=== PATIENT | female | born 1965 | race Caucasian/White ===

== ENCOUNTER → 2017-10-01 10:11 | Outpatient (CLI) | payer BC, SELFPAY ==
[2017-10-01 11:16] LABS: Alanine Aminotransferase 26 U/L (12-78); Albumin Level 3.8 gm/dL (3.4-5.0); Albumin/Globulin Ratio 1.1 (1.1-1.8); Alkaline Phosphatase 77 U/L (46-116); Anion Gap 14.5 mEq/L (5-15); Aspartate Amino Transferase 17 U/L (15-37); Bilirubin,Total 0.2 mg/dL (0.2-1.0); Blood Urea Nitrogen 15 mg/dL (7-18); Calcium 9.2 mg/dL (8.5-10.1); Carbon Dioxide 27 mmol/L (21.0-32.0); Chloride 109 mmol/L (98-107); Chol/HDL Ratio 3.8 (1-3.5); Cholesterol 229 mg/dL (140-200); Creatinine,Serum 0.72 mg/dL (0.55-1.02); Estimated Glomerular Filt Rate 85 ml/min (>60); GFR (African American) 103 ML/MIN (>60); Globulin 3.4 gm/dl (1.3-3.2); Glucose 109 mg/dL (74-106); HDL Cholesterol 61 mg/dL (29-89); LDL Cholesterol 143 mg/dL (0-130); Potassium 4.5 mmoL/L (3.5-5.1); Sodium 146 mmol/L (136-145); Thyroid Stimulating Hormone 1.21 uIU/ml (0.358-3.740); Total Protein,Serum 7.2 gm/dL (6.4-8.2); Triglycerides 124 mg/dL (30-200); Uric Acid 4.3 mg/dL (2.6-7.2); VLDL Cholesterol 25 mg/dL (0-40)
[2017-10-01 11:21] LABS: C-Reactive Protein < 0.2 mg/L (0.0-0.9)
[2017-10-01 12:30] LABS: Erythrocyte Sedimentation Rate 13 mm/hr (0-30)
[2017-10-01 12:33] LABS: Basophils % 0.9 % (0.1-2.0); Eosinophils # 0.3 K/mm3 (0.0-0.4); Eosinophils % 5.3 % (0.1-12.0); Hematocrit 42.1 % (37.0-47.0); Hemoglobin 13.7 g/dL (12.2-16.2); Lymphocytes # 1.5 K/mm3 (0.7-4.5); Lymphocytes % 31.3 K/mm3 (10-50); Mean Corpuscular HGB Conc 32.4 g/dL (31.8-35.4); Mean Corpuscular Hemoglobin 28.9 pg (27.0-31.2); Mean Corpuscular Volume 89.1 fl (81-99); Mean Platelet Volume 7.9 fl (7.4-10.4); Monocytes # 0.3 K/mm3 (0.1-1.0); Monocytes % 6.1 % (1.7-9.3); Neutrophils # 2.7 K/mm3 (1.8-7.8); Neutrophils % 56.4 % (37.0-80.0); Platelet Count 259 K/mm3 (142-424); Red Blood Count 4.73 M/mm3 (4.20-5.40); Red Cell Distribution Width 12.9 % (11.5-17.5); White Blood Count 4.9 K/mm3 (4.8-10.8)
[2017-10-04 08:28] LABS: RA Latex Turbid. 10.9 IU/mL (0.0-13.9)
[2017-10-04 08:31] LABS: Antinuclear Antibodies, IFA Positive (.); Vitamin D 25 Hydroxy 31.3 ng/mL (30.0-100.0)
== END ==
PROVIDERS: Visit Provider Nurse Practitioner Family
DX: R52 Pain, unspecified (principal); R53.83 Other fatigue; E78.2 Mixed hyperlipidemia; F32.9 Major depressive disorder, single episode, unspecified; L65.9 Nonscarring hair loss, unspecified
CPT/HCPCS: 36415; 80053; 80061; 82652; 84436; 84443; 84550; 85025; 85651; 86038; 86140; 86431

== ENCOUNTER → 2017-12-22 15:45 | Outpatient (CLI) | payer BC, SELFPAY ==
--- NOTE | 2017-12-22 15:50 | MM_ITS ---
MM Dig screening mamm BI w/CAD CAD Screening COMPARISON: Digital mammograms with CAD 12/20/2016 and additional views right breast 01/05/2017 and ultrasound right breast 01/07/2017 INDICATION: There is a history of breast cancer in patient's sister diagnosed at age 50. TECHNIQUE: Standard CC and MLO images were obtained. R2 CAD reviewed. FINDINGS: Moderate diffuse fibroglandular densities are seen in both breast. Again noted is a stable area of slightly increased glandular density outer quadrant right breast only definitely seen on the cc view and not definitely noted on MLO view. Ultrasound examination of this area was negative. There is no new or suspicious lesion and there are no suspicious microcalcifications. IMPRESSION: Moderate diffuse breast density with no suspicious lesion seen. BI-RADS Category: 2 Benign Finding(s) RECOMMENDED FOLLOW-UP: 1YR - 1 YEAR FOLLOW-UP (A letter has been sent to the patient regarding results of the study.)
== END ==
PROVIDERS: PCP Nurse Practitioner Family; Visit Provider Nurse Practitioner Family
DX: Z12.31 Encounter for screening mammogram for malignant neoplasm of breast (principal)
CPT/HCPCS: 77067

== ENCOUNTER → 2018-05-17 12:33 | Outpatient (CLI) | payer BC, SELFPAY ==
[2018-05-17 14:25] LABS: Free T4 (Free Thyroxine) 0.78 ng/dl (0.76-1.46); Thyroid Stimulating Hormone 1.44 uIU/ml (0.358-3.740)
[2018-05-18 15:07] LABS: Thyroid Peroxidase Antibodies 14 IU/mL (0-34)
[2018-05-19 09:06] LABS: Thyroid Stimulating Immunoglob <0.10 IU/L (0.00-0.55)
== END ==
PROVIDERS: PCP Nurse Practitioner Family; Visit Provider Otolaryngology
DX: E01.0 Iodine-deficiency related diffuse (endemic) goiter (principal)
CPT/HCPCS: 84439; 84443; 84445; 86376

== ENCOUNTER → 2018-05-19 09:48 | Outpatient (CLI) | payer BC, SELFPAY ==
--- NOTE | 2018-05-19 09:49 | FL_ITS ---
FL barium swallow Ordering Physician: Long Moody MD Patient Age: 53 years: Female HISTORY: ITS.REASON: Dysphagia TECHNIQUE: Dysphagia. Sometimes distinct change of voice. Choking sensation turning neck. 1 minute 26 seconds fluoroscopy time. COMPARISON :Ultrasound thyroid from today . CT abdomen pelvis from 11/25/2015 FINDINGS No prominent findings at hypopharynx or cervical esophagus . Note mild anterior marginal osteophytes at the cervical spine which is very slightly indents the posterior aspect of the cervical spine esophagus and conceivably could contribute to moderate symptoms of dysphasia but are unimpressive. . Disc space narrowing most evident at C4/5 with mild intramarginal findings here and to lesser C5-C6, C6/7. Small venous indentation upon the anterior aspect of the proximal cervical esophagus. Barely appreciable. Epiglottis and hypopharynx appear satisfactory. Epiglottis normal size. Prevertebral soft tissues appear normal. The vallecula and piriform sinuses appear symmetrical frontal projections. The thoracic esophagus appears normal caliber. There is a thin B ring / Z line reflecting top of a small sliding hiatal hernia. . Widely patent esophagus is protrusion with normal mucosal pattern distal esophagus. No restriction at this Schatzki's ring seen distally. IMPRESSION: 1. Cervical esophagus ... No lesions nor prominent findings. Normal swallowing pattern .... Only note minimal indentation upon the posterior aspect lower cervical esophagus due to early minimal anterior marginal osteophytes at C4/5 C5/6 C6/7 ... Of questionable significance but at times can contribute to this dysphagia symptoms . 2. Thoracic esophagus Small sliding hiatal hernia noted no reflux observed during this setting . no significant nor prominent findings during fluoroscopy. Minimal Schatzki's ring
--- NOTE | 2018-05-19 10:20 | US_ITS ---
ULTRASOUND THYROID PROCEDURE: Multiple sagittal & transverse ultrasound images of the thyroid. MW HISTORY: Difficulty swallowing. Throat pain. Normal labs. COMPARISON: No previous relevant studies ----- FINDINGS: Thyroid gland appears normal size with tiny vague nodules at the right lobe. Left lobe appears normal. No areas of increase color Doppler flow Fairly homogeneous gland bilaterally except for the small areas noted RIGHT LOBE: 4 cm length x 2.1 cm x 1.3 cm AP Nodule A: Tiny 3.3 mm nodule lateral mid right lobe. Nodule B: Tiny 2.7 mm nodule medial anterior right lobe near junction with the isthmus LEFT LOBE: 3.9 cm length x 1.6 cm wide x 1.3 cm AP ISTHMUS: Normal thickness up to 3 mm mm AP. =====IMPRESSION.====== Thyroid appears normal in size bilaterally. Only tiny vague nodules seen at right lobe. Left lobe unremarkable.
== END ==
PROVIDERS: PCP Emergency Medicine; Visit Provider Otolaryngology
DX: R13.10 Dysphagia, unspecified (principal); E04.1 Nontoxic single thyroid nodule
CPT/HCPCS: 74220; 76536

== ENCOUNTER → 2018-10-13 17:47 | Outpatient (CLI) | payer BC, SELFPAY | PROVIDERS: Visit Provider Nurse Practitioner Family | DX: J02.9 Acute pharyngitis, unspecified (principal) ==

== ENCOUNTER → 2018-12-30 08:17 | Outpatient (CLI) | payer BC, SELFPAY ==
[2018-12-30 08:53] LABS: Basophils # 0.1 K/mm3 (0-0.2); Eosinophils # 0.3 K/mm3 (0.0-0.4); Eosinophils % 5.5 % (0.1-12.0); Hematocrit 42.6 % (37.0-47.0); Hemoglobin 14.2 g/dL (12.2-16.2); Lymphocytes # 1.7 K/mm3 (0.7-4.5); Lymphocytes % 34.6 % (10-50); Mean Corpuscular HGB Conc 33.3 g/dL (31.8-35.4); Mean Corpuscular Volume 93.1 fl (81-99); Mean Platelet Volume 7.5 fl (7.4-10.4); Monocytes # 0.3 K/mm3 (0.1-1.0); Monocytes % 5.8 % (1.7-9.3); Neutrophils # 2.7 K/mm3 (1.8-7.8); Platelet Count 245 K/mm3 (142-424); Red Blood Count 4.58 M/mm3 (4.20-5.40); Red Cell Distribution Width 13.2 % (11.5-17.5)
[2018-12-30 09:26] LABS: Alanine Aminotransferase 24 U/L (12-78); Albumin/Globulin Ratio 1.1 (1.1-1.8); Alkaline Phosphatase 71 U/L (46-116); Anion Gap 9.2 mEq/L (5-15); Aspartate Amino Transferase 19 U/L (15-37); Bilirubin,Total 0.5 mg/dL (0.2-1.0); Blood Urea Nitrogen 10 mg/dL (7-18); Calcium 9.2 mg/dL (8.5-10.1); Carbon Dioxide 30 mmol/L (21.0-32.0); Chloride 104 mmol/L (98-107); Chol/HDL Ratio 3.1 (1-3.5); Cholesterol 229 mg/dL (140-200); Creatinine,Serum 0.66 mg/dL (0.55-1.02); Estimated Glomerular Filt Rate 93 ml/min (>60); Free T4 (Free Thyroxine) 0.78 ng/dl (0.76-1.46); GFR (African American) 113 ML/MIN (>60); Globulin 3.5 gm/dl (1.3-3.2); Glucose 101 mg/dL (74-106); HDL Cholesterol 74 mg/dL (29-89); LDL Cholesterol 131 mg/dL (0-130); Potassium 4.2 mmoL/L (3.5-5.1); Sodium 139 mmol/L (136-145); Thyroid Stimulating Hormone 1.73 uIU/ml (0.358-3.740); Total Protein,Serum 7.5 gm/dL (6.4-8.2); Triglycerides 118 mg/dL (30-200); VLDL Cholesterol 24 mg/dL (0-40)
== END ==
PROVIDERS: Visit Provider Nurse Practitioner Family
DX: Z00.00 Encounter for general adult medical examination without abnormal findings (principal); R53.83 Other fatigue; E55.9 Vitamin D deficiency, unspecified
CPT/HCPCS: 36415; 80053; 80061; 82652; 84439; 84443; 85025

== ENCOUNTER → 2019-01-12 07:54 | Outpatient (CLI) | payer BC, SELFPAY ==
--- NOTE | 2019-01-12 07:55 | MM_ITS ---
PROCEDURE: MM DIG SCREENING MAMM BI W/CAD CLINICAL INDICATION: screening There is a history of breast cancer in patient's sister diagnosed at age 50 COMPARISON: DMSB DIG MAMM-SCREEN FARA W/CAD from 12/20/2016 DMDXUAVR DIG MAMM-DX UNI A/VW-RT W/CAD from 01/05/2017 [facility] MM Dig screening mamm BI w/CAD from 12/22/2017 TECHNIQUE: Standard CC and MLO images were obtained. R2 CAD reviewed. FINDINGS: Moderate diffuse fibroglandular densities are seen in both breasts again showing slightly increased glandular elements in the upper outer quadrant right breast. There is no new or suspicious lesion in either breast and no suspicious microcalcifications. IMPRESSION: Moderate breast density with no suspicious lesions seen BI-RAD Category: 1 Negative FOLLOW-UP: 1YR 1 Year Follow-up (A letter has been sent to the patient regarding results of the study.) Dictated by: Dr. William Evans MD 01/12/2019 09:[address] William Evans MD in [place] 01/12/2019 09:30
== END ==
PROVIDERS: PCP Emergency Medicine; Visit Provider Nurse Practitioner Family
DX: Z12.31 Encounter for screening mammogram for malignant neoplasm of breast (principal)
CPT/HCPCS: 77067

== ENCOUNTER → 2020-01-21 15:54 | Outpatient (CLI) | payer BC, SELFPAY ==
--- NOTE | 2020-01-21 15:54 | MM_ITS ---
PROCEDURE: MM DIG SCREENING MAMM BI W/CAD Digital Breast Tomosynthesis Included CLINICAL INDICATION: screening There is a history of breast cancer in the patient's sister diagnosed at age 50 COMPARISON: MG DMDXUAVR DIG MAMM-DX UNI A/VW-RT W/CAD from 01/05/2017 MG [facility] MM Dig screening mamm BI w/CAD from 12/22/2017 MG MM DIG SCREENING MAMM BI W/CAD from 01/12/2019 TECHNIQUE: Standard CC and MLO images and 3D Tomosynthesis was obtained. R2 CAD reviewed. FINDINGS: Mild to moderate diffuse fibroglandular densities are seen in both breasts. Findings are fairly symmetrical bilaterally. There is no suspicious lesion in either breast and no suspicious microcalcifications. IMPRESSION: Moderate breast density with no suspicious lesions seen BI-RAD Category: 1 Negative FOLLOW-UP: 1YR 1 Year Follow-up (A letter has been sent to the patient regarding results of the study.) Dictated by: Dr. William Evans MD 01/24/2020 16:20 Dr. William Evans MD in [place] 01/24/2020 16:20
== END ==
PROVIDERS: PCP Nurse Practitioner Family; Visit Provider Nurse Practitioner Family
DX: Z12.31 Encounter for screening mammogram for malignant neoplasm of breast (principal)
CPT/HCPCS: 77063; 77067

== ENCOUNTER 2020-03-18 09:04 | Emergency (ER) | payer BC, SELFPAY ==
[2020-03-18 09:10] VITALS: BP 138/71; PULSE 77; RESP 18; TEMP 36.8; O2SAT 94; BMI 27.4
--- NOTE | 2020-03-18 09:43 | HMH.EDUTC ---
[facility] Disposition Clinical Impression: Exposure to COVID-19 virus Disposition: Home, Self-Care Condition on Discharge: Good Instructions: Glennaifenesin, DI for COVID-19 (Suspected or Confirmed ), Coronavirus Disease 2019, Preventing the Spread of Coronavirus Discharge Instructions Additional Instructions: *Monitor Temp, Over the counter Motrin or Tylenol as directed/as needed Tylenol every 4 hours and Motrin every 6 hours (as long as your family doctor has told you that you can take it) for fever or pain. and straight to ER if unable to lower temp less than 101.0 after medication given *Warm salt water gargles may help to soothe the throat *Throat Lozenges *Warm fluids like tea with honey may help to soothe the throat *Sleep elevated *Humidifier/Vaporizer Follow up IMMEDIATELY for new or worsening symptoms or no Noticeable improvement over the next 48-72 hours. 911 for difficulty breathing or swallowing You were tested for today for COVID19 your test result should be back in the next 24-48 hours, you may call to the [facility] to see if your test results are back in the next 48 hours [phone] [facility] hours are 9am-9pm You was given a handout with instructions for Self Quarantine and Self isolation for while you wait on test results and what to do if they are positive If you are positive the Health Dept will be contacting you also Prescriptions: guaiFENesin [Mucinex 600mg tablet] 600 mg PO Q12HP PRN #20 tab.[email or web address] PRN Reason: Cough Transmission Status: Received by [facility] Referrals: Dylan Haas MD [Primary Care Provider] - As needed Forms: Work/School Release Time of Disposition: 09:58 Medical Decision Making - Bharat Inquiry Pt receiving controlled substance: No Bharat was queried for this patient: No Vital Signs: 03/18/20 09:10 03/18/20 10:04 Temperature 98.2 F 98.2 F Temperature Source Oral Pulse Rate 77 Pulse Rate [Left Brachial] 77 Respiratory Rate 18 18 Blood Pressure 138/71 Blood Pressure [Left Arm] 138/71 Blood Pressure Mean [Left Arm] 93 Blood Pressure Source [Left Arm] Automatic Cuff Blood Pressure Position [Left Arm] Sitting 02 Sat by Pulse Oximetry 94 L Oxygen Delivery Method Room Air Orders (Tests/Meds): ORDERS Category Date Time Status Covid-19 Nasal PCR ([facility]) Routine Lab 03/18/20 09:30 Received [facility] HPI - General Stated complaint: symtoms, exposure Time Seen by Provider: 03/18/20 09:43 Mode of Arrival: Ambulatory Source of Information: Patient Limitations: No Limitations Description of Symptoms (Recalled from Triage Doc. by RN): COVID TEST D/T POSSIBLE EXPOSURE. C/O LOSS OF TASTE, COUGH, AND SOA. 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 - Related Data Home Medications Medication Instructions Recorded Confirmed albuterol sulfate 90 mcg/actuation 2 puff INHALATION Q6H PRN 10/13/18 11/08/19 aerosol inhaler Previous Rx's Medication Instructions Recorded simvastatin 40 mg tablet See Rx Instructions .ROUTE 10/12/19 .COMPLEX #90 tab montelukast 10 mg tablet 10 mg PO QPM #90 tab 01/14/20 sertraline 100 mg tablet See Rx Instructions .ROUTE 02/18/20 .COMPLEX #45 tab guaiFENesin [Mucinex 600mg tablet] 600 mg PO Q12HP PRN #20 tab.er.12h 03/18/20 Allergies Allergy/AdvReac Type Severity Reaction Status Date / Time No Known Allergies Allergy Verified 11/08/19 14:29 - Worker's C
[2020-03-18 10:04] VITALS: BP 138/71; PULSE 77; RESP 18; TEMP 36.8; O2SAT 95
== END 2020-03-18 10:11 | disposition home or self-care (01) ==
PROVIDERS: Emergency Provider Nurse Practitioner; PCP Emergency Medicine
DX: Z20.822 Contact with and (suspected) exposure to COVID-19 (principal); J45.909 Unspecified asthma, uncomplicated; E78.5 Hyperlipidemia, unspecified; F33.1 Major depressive disorder, recurrent, moderate; Z79.899 Other long term (current) drug therapy
CPT/HCPCS: 99202; G0463; U0003

== ENCOUNTER → 2020-03-20 10:15 | Outpatient (CLI) | payer BC, SELFPAY | PROVIDERS: PCP Nurse Practitioner Family; Visit Provider Nurse Practitioner Family | DX: Z20.822 Contact with and (suspected) exposure to COVID-19 (principal) | CPT/HCPCS: U0003 ==

== ENCOUNTER 2020-04-05 03:27 | Emergency (ER) | payer BC, SELFPAY ==
[2020-04-05 03:37] VITALS: PULSE 78; RESP 24; TEMP 37; O2SAT 92; BMI 27.4
--- NOTE | 2020-04-05 03:51 | XR_ITS ---
PROCEDURE: XR CHEST 2V Referring Doctor: Dylan Haas Patient Age:55Y CLINICAL HISTORY: SOA Woke up short of breath with nausea. Patient had 2nd coded vaccine yesterday COMPARISON: CR XR CHEST PORTABLE from 04/05/2020 FINDINGS: . No focal consolidation. No focal pneumonia. No pneumothorax. No pleural effusions . However there does seem to be very slight accentuation of pulmonary vascularity and even question some subtleseptal lines towards left lung base however seems to resolve on this the subsequent portable CXR at 7 a.m.. Would raise possibility and question if it could reflect some mild transient subtle vascular congestion question scant, trace transit pulmonary edema episode-but again this very subtle questionable observations. Equivocal . Heart does remain normal in size. The ahmet and mediastinal structures are satisfactory Chest wall in T-spine unremarkable IMPRESSION: . No focal infiltrate or pneumonia. No pneumothorax nor pleural effusion Suggestion of minimal vascular prominence compared to a subsequent P CXR 4hours later on which it seems to resolve. Would only speculate/question there could been a episode of subtle minor transient vascular congestion contributing to symptoms? Equivocal observation but noted Dictated by: Sumit Guerrero MD 04/05/2020 09:28 Sumit Guerrero MD in [place] 04/05/2020 09:28
[2020-04-05 03:58] VITALS: BP 111/66; PULSE 75; O2SAT 93
--- NOTE | 2020-04-05 04:02 | HMH.EDSYNC ---
ED Disposition Clinical Impression: Vasovagal syncope, Laryngeal spasm Disposition: Home, Self-Care Condition on Discharge: Good Instructions: DI for Syncope in Adults (Fainting) Additional Instructions: recheck if sob or fever - and call pcp for follow up Prescriptions: levoFLOXacin [Levaquin 500mg tab] 500 mg PO DAILY #7 tab Transmission Status: Pending to [facility] Referrals: Judi Alvarez APRN [Primary Care Provider] - - Critical Care Critical Care Time: No Attestation: On 04/05/20, the high probability of a clinically significant, sudden or life threatening deterioration of the following system(s) required my full and direct attention, intervention and personal management. The time I documented below is in addition to time spent performing reported procedures but includes the following listed in this critical care notation. Medical Decision Making - Medical Records Medical records reviewed: Yes: I reviewed the patient's medical records. - Bharat Inquiry Pt receiving controlled substance: No Vital Signs: 04/05/20 03:37 04/05/20 03:58 Temperature 98.6 F Temperature Source Oral Pulse Rate [Right] 78 75 Respiratory Rate 24 Blood Pressure [Right Arm] 111/66 Blood Pressure Mean [Right Arm] 81 Blood Pressure Source [Right Arm] Automatic Cuff Blood Pressure Position [Right Arm] Supine 02 Sat by Pulse Oximetry 92 L 93 L Oxygen Delivery Method Room Air Nasal Cannula Oxygen Flow Rate (LPM) 2 - Lab Data Lab results reviewed: Yes: I reviewed the patient's lab results. Lab Results 04/05/20 03:47: POC Glucose 168 H 04/05/20 03:55: WBC 9.2, RBC 4.52, Hgb 13.4, Hct 41.3, MCV 91.4, MCH 29.6, MCHC 32.4, RDW 13.0, Plt Count 296, MPV 7.6, Neut % (Auto) 69.9, Lymph % (Auto) 20.6, Meagher % (Auto) 4.9, Eos % (Auto) 3.7, Baso % (Auto) 0.9, Neut # (Auto) 6.5, Lymph # (Auto) 1.9, Meagher # (Auto) 0.5, Eos # (Auto) 0.3, Baso # (Auto) 0.1, ESR 32 H 04/05/20 03:55: Sodium 141, Potassium 3.8, Chloride 106, Carbon Dioxide 28, Anion Gap 10.8, BUN 12, Creatinine 0.80, Estimated Creat Clear 96, Estimated GFR 74, Est GFR ( Amer) 90, Glucose 187 H, Calcium 9.8, Total Bilirubin 0.4, AST 33, ALT 33, Alkaline Phosphatase 68, Troponin I < 0.01, C-Reactive Protein 7.5 H, Total Protein 7.9, Albumin 4.5, Globulin 3.4 H, Albumin/Globulin Ratio 1.3, Amylase 66, Lipase 185, Procalcitonin 0.067 Result diagrams: 04/05/20 03:55 04/05/20 03:55 Orders (Tests/Meds): ED MEDICATIONS Generic Name Dose Route Start Last Admin Trade Name Freq PRN Reason Stop Dose Admin Sodium Chloride 1,000 mls @ 999 mls/hr 04/05/20 04:00 04/05/20 03:57 Sod Chlor 0.9% 1000ml Bag IV 04/05/20 05:00 999 mls/hr .Q1H1M IZZY Administration Sodium Chloride 1,000 mls @ 999 mls/hr 04/05/20 04:30 04/05/20 04:19 Sod Chlor 0.9% 1000ml Bag IV 04/05/20 05:30 999 mls/hr .Q1H1M IZZY Administration Sodium Chloride 1,000 mls @ 999 mls/hr 04/05/20 04:30 04/05/20 04:38 Sod Chlor 0.9% 1000ml Bag IV 04/05/20 05:30 Not Given .Q1H1M IZZY Discontinued Medications Generic Name Dose Route Start Last Admin Trade Name Freq PRN Reason Stop Dose Admin Dexamethasone Sodium Phosphate 10 mg 04/05/20 03:54 04/05/20 03:57 Dexamethasone 4mg/Ml 1ml Vial IV 04/05/20 03:55 10 mg ONCE ONE Administration Epinephrine 0.5 ml 04/05/20 03:51 04/05/20 04:12 Epinephrine 2.25% Neb 0.5ml Ud IH 04/05/20 03:52 Not Given ONCE ONE Ketorolac Tromethamine 30 mg 04/05/20 03:54 04/05/20 03:57 Ketorolac 30mg/Ml Vial IV 04/05/20 03:55 30 mg ONCE ONE Administration Prochlorperazine Edisylate 10 mg 04/05/20 03:54 04/05/20 03:56 Prochlorperazine 10mg/2ml Vial IV 04/05/20 03:55 10 mg ONCE ONE Administration ORDERS Category Date Time Status XR chest 2V Stat Exams 04/05/20 03:51 Taken Troponin I Q3H Lab 04/05/20 07:00 Ordered Troponin I Q3H Lab 04/05/20 10:00 Ordered - Radiology Data #
[2020-04-05 04:15] LABS: Chloride 106 mmol/L (98-107); Sodium 141 mmol/L (136-145)
[2020-04-05 04:16] LABS: Potassium 3.8 mmoL/L (3.5-5.1)
[2020-04-05 04:18] LABS: Alanine Aminotransferase 33 U/L (12-78); Amylase 66 U/L (30-110); Anion Gap 10.8 mEq/L (5-15); Aspartate Amino Transferase 33 U/L (14-36); Blood Urea Nitrogen 12 mg/dl (7-17); Carbon Dioxide 28 mmol/L (22.0-30.0); Creatinine Clearance Estimated 96 mL/min (50-200); Estimated Glomerular Filt Rate 74 ml/min (>60); GFR (African American) 90 ML/MIN (>60)
[2020-04-05 04:19] LABS: Albumin Level 4.5 g/dl (3.5-5.0); Albumin/Globulin Ratio 1.3 (1.1-1.8); Alkaline Phosphatase 68 U/L (38-126); Bilirubin,Total 0.4 mg/dl (0.2-1.3); Calcium 9.8 mg/dl (8.4-10.2); Globulin 3.4 g/dL (1.3-3.2); Glucose 187 mg/dl (74-100); Lipase 185 U/L (23-300); Total Protein,Serum 7.9 g/dl (6.3-8.2)
[2020-04-05 04:23] LABS: POC Glucose,Bedside 168 (70-110)
[2020-04-05 04:24] LABS: C-Reactive Protein 7.5 mg/L (0-4)
[2020-04-05 04:33] LABS: Erythrocyte Sedimentation Rate 32 mm/hr (0-30)
[2020-04-05 04:35] LABS: Basophils # 0.1 K/mm3 (0-0.2); Basophils % 0.9 % (0.1-2.0); Eosinophils # 0.3 K/mm3 (0.0-0.4); Eosinophils % 3.7 % (0.1-12.0); Hematocrit 41.3 % (37.0-47.0); Hemoglobin 13.4 g/dL (12.2-16.2); Lymphocytes # 1.9 K/mm3 (0.7-4.5); Lymphocytes % 20.6 % (10-50); Mean Corpuscular HGB Conc 32.4 g/dL (31.8-35.4); Mean Corpuscular Hemoglobin 29.6 pg (27.0-31.2); Mean Corpuscular Volume 91.4 fl (81-99); Mean Platelet Volume 7.6 fl (7.4-10.4); Monocytes # 0.5 K/mm3 (0.1-1.0); Monocytes % 4.9 % (1.7-9.3); Neutrophils # 6.5 K/mm3 (1.8-7.8); Neutrophils % 69.9 % (37.0-80.0); Platelet Count 296 K/mm3 (142-424); Red Blood Count 4.52 M/mm3 (4.20-5.40); White Blood Count 9.2 K/mm3 (4.8-10.8)
[2020-04-05 04:39] LABS: Troponin I < 0.01 ng/ml (0.00-0.034)
[2020-04-05 04:41] LABS: Procalcitonin 0.067 ng/mL (0.0-2.0)
[2020-04-05 05:09] VITALS: BP 130/74; PULSE 75; RESP 16; TEMP 36.9; O2SAT 94
[2020-04-05 07:36] LABS: Troponin I < 0.01 ng/ml (0.00-0.034)
== END 2020-04-05 05:13 | disposition home or self-care (01) ==
PROVIDERS: Emergency Provider Emergency Medicine; PCP Nurse Practitioner Family
DX: R55 Syncope and collapse (principal); J38.5 Laryngeal spasm; E78.5 Hyperlipidemia, unspecified; J45.909 Unspecified asthma, uncomplicated; F33.1 Major depressive disorder, recurrent, moderate; Z79.899 Other long term (current) drug therapy
CPT/HCPCS: 71046; 80053; 82150; 82962; 83690; 84145; 84484; 85025; 85651; 86140; 96365; 96375; 99283

== ENCOUNTER 2020-04-05 06:36 | Observation (INO) | payer BC, SELFPAY ==
[2020-04-05] VITALS (17 sets, daily range): BP systolic 106–155; BP diastolic 58–81; PULSE 77–103; RESP 17–32; TEMP 36.4–37.3; O2SAT 91–99; BMI 27.4; BMI 26.6; BMI 29.2
--- NOTE | 2020-04-05 03:35 | ECG_ITS ---
APPROVED REPORT Exam: Resting ECG HR:78 bpm ECG Measurements Heart Rate 78 AXES MO 144 P 68 QRSd 60 QRS 58 QT 394 T 59 QTc 449 Conclusion Normal sinus rhythm Normal ECG Electronically signed by : Anish Mathews, 04/05/2020 20:36:47
--- NOTE | 2020-04-05 07:01 | XR_ITS ---
PROCEDURE: XR CHEST PORTABLE Referring Doctor: Dylan Haas Patient Age:55Y CLINICAL HISTORY: SOB nonsmoker Patient just received 2nd dose of covid vaccine yesterday COMPARISON: CT ABDPELW CT ABD PELVIS W/ CONTRAST from 11/25/2015 DX,RF BS FL barium swallow from 05/19/2018 CR XR CHEST 2V from 04/05/2020 FINDINGS: AP portable upright chest performed at 7:07 a.m. on April 05 . This is compared to two view chest performed earlier at 4 a.m. on April 05, 2020 Nothing definitely acute. Markings upper normal at the right infrahilar region most likely reflecting summation shadows and possibly some mild atelectasis.. No convincing infiltrate. The the AP chest projection accentuates heart size with heart upper normal in size on this study. Pulmonary vascularity appears normal.. In fact there seems to be slightly less prominence of pulmonary vascularity than seen on the 4 a.m. PA and lateralCXR study . Caitie and mediastinal structures otherwise unremarkable no pleural effusions but no pneumothorax. Chest wall unremarkable IMPRESSION: Nothing definitely acute.. Accentuation markings right infrahilar region noted-most likely reflecting overlapping structures along with possible minimal atelectasis. (Doubt infiltrate particularly given normal appearance on CXR four hours earlier) Dictated by: Sumit Guerrero MD 04/05/2020 09:20 Sumit Guerrero MD in [place] 04/05/2020 09:20
--- NOTE | 2020-04-05 07:12 | HMH.EDSOB ---
ED Disposition Clinical Impression: SIRS (systemic inflammatory response syndrome) Aspiration pneumonia Qualifiers: Aspiration pneumonia type: unspecified Laterality: right Lung location: lower lobe of lung Qualified Code(s): J69.0 - Pneumonitis due to inhalation of food and vomit Disposition: Admitted as Observation Condition on Discharge: Good Instructions: DI for Shortness of Breath Referrals: Judi Alvarez APRN [Primary Care Provider] - - Critical Care Critical Care Time: No Attestation: On 04/05/20, the high probability of a clinically significant, sudden or life threatening deterioration of the following system(s) required my full and direct attention, intervention and personal management. The time I documented below is in addition to time spent performing reported procedures but includes the following listed in this critical care notation. Medical Decision Making - Medical Records Medical records reviewed: Yes: I reviewed the patient's medical records. - Bharat Inquiry Pt receiving controlled substance: No Vital Signs: 04/05/20 06:53 Pulse Rate [Right] 95 H Respiratory Rate 32 H Blood Pressure [Right Arm] 150/76 H Blood Pressure Mean [Right Arm] 100 Blood Pressure Source [Right Arm] Automatic Cuff Blood Pressure Position [Right Arm] Sitting 02 Sat by Pulse Oximetry 94 L Oxygen Delivery Method Room Air - Lab Data Lab results reviewed: Yes: I reviewed the patient's lab results. Lab Results 04/05/20 07:13: Specimen Source Right radial, O2 % Room air, ABG pH 7.40, ABG pCO2 36.8, ABG pO2 57.4 L, ABG HCO3 22.2, ABG Total CO2 23.3, ABG O2 Saturation 91, ABG Base Excess -2.7 L, Luca Test Acceptable, ABG Lactate 1.8 Orders (Tests/Meds): ED MEDICATIONS Generic Name Dose Route Start Last Admin Trade Name Freq PRN Reason Stop Dose Admin Sodium Chloride 1,000 mls @ 999 mls/hr 04/05/20 07:00 04/05/20 06:57 Sod Chlor 0.9% 1000ml Bag IV 04/05/20 08:00 999 mls/hr .Q1H1M IZZY Administration Sodium Chloride 8 ml 04/05/20 06:56 Sodium Chloride 0.9% 10ml Vial IV 05/05/20 06:55 NEEDED PRN dilute pepcid Discontinued Medications Generic Name Dose Route Start Last Admin Trade Name Freq PRN Reason Stop Dose Admin Diphenhydramine HCl 50 mg 04/05/20 06:56 04/05/20 06:57 Diphenhydramine 50mg/Ml Vial IV 04/05/20 06:57 50 mg ONCE ONE Administration Famotidine 20 mg 04/05/20 06:56 04/05/20 06:57 Famotidine 20mg/2ml Vial IV 04/05/20 06:57 20 mg ONCE ONE Administration Methylprednisolone Sodium Succinate 125 mg 04/05/20 07:34 Methylprednisolone Sod Succ 125mg Vial IV 04/05/20 07:35 ONCE ONE ORDERS Category Date Time Status Chest XR -- portable [XR chest portable] Stat Exams 04/05/20 07:01 Taken Complete Blood Count Auto Diff Stat Lab 04/05/20 06:45 Received Covid-19 Nasal PCR ([facility]) Routine Lab 04/05/20 03:50 Received Lactic Acid Stat Lab 04/05/20 07:13 Ordered Blood Culture Stat Micro 04/05/20 07:33 Ordered - Radiology Data #1 Image(s): Chest Image Reviewed: Yes I reviewed the patient's radiology image Preliminary Findings: Abnormal Medical Decision Narrative: prob pneumatitis and aspiration pneumonia Resp/SOB HPI - General Chief Complaint: Shortness of Breath/Dyspnea Stated Complaint: SOA Time Seen by Provider: 04/05/20 07:00 Mode of Arrival: Ambulatory Source of Information: Patient, Spouse, Medical Record Limitations: No Limitations Description of Symptoms (Recalled from ER Triage Doc. by RN): Pt was here earlier for SOA and N/V pt returned having a severe asthma event, pt audibly wheezing and retracting with each breath. Pt made it hame took a shower and had to return in respiratory distress - History of Present Illness seen earlier with possible aspiration and was doing better - but dev sudden sob and returned to ed - hx of asthma - no fever but has chills - MD Complaint: shortness of breath, coug
[2020-04-05 07:32] LABS: ABG Base Excess -2.7 mmol/L (-2.4-2.3); ABG HCO3 22.2 mmhg (22.0-26.0); ABG Oxygen Saturation 91 % (90-100); ABG PCO2 36.8 mmhg (35.0-45.0); ABG PO2 57.4 mmhg (80-100); ABG TCO2 23.3 mmhg (23-27)
[2020-04-05 07:33] LABS: Oxygen ROOM AIR %
[2020-04-05 07:34] LABS: Allen's Test Acceptable; Lactate Arterial 1.8 mmol/L (0.4-2.0); Source Right Radial
[2020-04-05 07:39] LABS: Basophils # 0.1 K/mm3 (0-0.2); Basophils % 0.5 % (0.1-2.0); Eosinophils # 0.1 K/mm3 (0.0-0.4); Eosinophils % 0.5 % (0.1-12.0); Hematocrit 43.3 % (37.0-47.0); Lymphocytes # 1.6 K/mm3 (0.7-4.5); Lymphocytes % 11.6 % (10-50); Mean Corpuscular HGB Conc 32.3 g/dL (31.8-35.4); Mean Corpuscular Hemoglobin 29.7 pg (27.0-31.2); Mean Corpuscular Volume 91.7 fl (81-99); Mean Platelet Volume 8.6 fl (7.4-10.4); Monocytes # 0.3 K/mm3 (0.1-1.0); Monocytes % 2.3 % (1.7-9.3); Neutrophils # 11.4 K/mm3 (1.8-7.8); Neutrophils % 85.1 % (37.0-80.0); Platelet Count 269 K/mm3 (142-424); Red Blood Count 4.72 M/mm3 (4.20-5.40); Red Cell Distribution Width 13.8 % (11.5-17.5); White Blood Count 13.4 K/mm3 (4.8-10.8)
[2020-04-05 07:42] LABS: MANUAL DIFFERENTIAL MANUAL DIFFERENTIAL (MANUAL DIFF)
--- NOTE | 2020-04-05 08:23 | PC.NURSE ---
contacted pharmacy r/t antibiotic dosing per ER MD request, spoke with Tracee.
[2020-04-05 08:27] LABS: Lymphocytes % 11 % (10-50); Monocytes % 2 % (2-9); Neutrophils % 87 % (42-76); Platelet Estimate Normal; RBC Morphology Normal; Total Cells Counted 100
--- NOTE | 2020-04-05 08:33 | PC.NURSE ---
Called house for bed assignment
--- NOTE | 2020-04-05 09:06 | HMH.HP ---
*Admission Date: 04/05/20 *Chief complaint: sob *History of present illness: this pt with recent covid-19 vaccines and had ed visit as she awoke with n/v and vasovagal episode and sob - she was treated and improved and d/c home but in a few hrs had sob with chills - pt with abn cxr and was admitted for treatment with steroids - resp treatment and abx [facility] History I have reviewed the patient's past medical history: Yes Medical History: Reports:: Asthma, Depression, Hyperlipidemia Denies:: Diabetes Mellitus Type 1, Diabetes Mellitus Type 2 *Have you ever received a pneumonia vaccine?: No *Have you received a flu vaccine this season?: Yes Other Surgeries: Yes: Colonoscopy Amputation: No Fractures: No - *Social History Smoking Status: Never smoker Alcohol Intake: never Alcohol Intake Frequency:: 0-2 drinks per day Substance Use Type: denies use *Occupational Status:: employed Housing: house Household Members: family *Travel in the last 8 weeks: None - Psychiatric History Pschychiatric History:: Reports:: Depression Family Hx:: Diabetes Review of Systems - Review of Systems Review of systems:: pertinent systems reviewed and negative unless documented below - Constitutional Reports chills, Denies fever(s) - Eyes Denies change in vision - ENT Denies sore throat, Denies throat swelling - *Cardiovascular Denies chest pain - *Respiratory Reports cough, Reports shortness of breath, Reports wheezing, Denies coughing up blood - *Gastrointestinal Denies abdominal pain - *Genitourinary Denies blood in urine - *Musculoskeletal Denies joint pain, Denies body aches - Integumentary/Breasts Denies rash - *Neurologic Denies headache(s), Denies seizure-like activity - Psychiatric Denies confusion, Denies depression, Denies memory loss Meds Home Medications Medication Instructions Recorded Confirmed Type albuterol sulfate 90 mcg/actuation 2 puff INHALATION Q6H PRN 10/13/18 04/05/20 History aerosol inhaler Sertraline HCl [Zoloft] 150 mg PO DAILY 04/05/20 04/05/20 History Simvastatin 40 mg PO DAILY 04/05/20 04/05/20 History levoFLOXacin [Levaquin 500mg 500 mg PO DAILY 04/05/20 04/05/20 History tab] Allergies Allergy/AdvReac Type Severity Reaction Status Date / Time No Known Allergies Allergy Verified 11/08/19 14:29 Exam Vital signs and Labs for Last 24 Hours: Temp Pulse Resp BP Pulse Ox 99.1 F 90 20 150/79 H 91 L 04/05/20 07:48 04/05/20 09:00 04/05/20 07:48 04/05/20 09:00 04/05/20 09:00 Laboratory Results - last 24 hr 04/05/20 06:45: WBC 13.4 H D, RBC 4.72, Hgb 14.0, Hct 43.3, MCV 91.7, MCH 29.7, MCHC 32.3, RDW 13.8, Plt Count 269, MPV 8.6, Neut % (Auto) 85.1 H, Lymph % (Auto) 11.6, [place] % (Auto) 2.3, Eos % (Auto) 0.5, Baso % (Auto) 0.5, Neut # (Auto) 11.4 H, Lymph # (Auto) 1.6, [place] # (Auto) 0.3, Eos # (Auto) 0.1, Baso # (Auto) 0.1, Total Counted 100, Neutrophils % (Manual) 87 H, Lymphocytes % (Manual) 11, Monocytes % (Manual) 2, Platelet Estimate Normal, RBC Morphology Normal 04/05/20 07:13: Specimen Source Right radial, O2 % Room air, ABG pH 7.40, ABG pCO2 36.8, ABG pO2 57.4 L, ABG HCO3 22.2, ABG Total CO2 23.3, ABG O2 Saturation 91, ABG Base Excess -2.7 L, Luca Test Acceptable, ABG Lactate 1.8 04/05/20 07:26: Lactate 2.0 I & O for Last 24 hours: Intake & Output 04/02/20 04/03/20 04/04/20 04/05/20 11:59 11:59 11:59 11:59 Weight 170 lb - Constitutional no acute distress - *Routine HEENT Exam Head: Present: normocephalic Eye: Present: EOMI, PERRL ENT: Present: mucous membranes dry - *Routine Neck Exam Absent: supple, JVD - *Routine Respiratory Exam Present: decreased breath sounds, wheezes - *Routine Cardiovascular Exam Present: tachycardia. Absent: murmur, gallop, rubs - *Routine Abdominal Exam Present: soft - *Routine Extremities Exam Absent: calf tenderness - *Routine Skin Exam Present: intact - *Routine Neurological Exam
--- NOTE | 2020-04-05 11:10 | PC.NURSE ---
pt arrived to the floor at this time.
--- NOTE | 2020-04-05 14:34 | P.CONPHA_ITS ---
[facility] Pharmacy VTE Monitoring - Patient Demographics Admission date: 04/05/20 Report Date: 04/05/20 Time: 14:34 Allergies/Adverse Reactions: Patient Allergies No Known Allergies Allergy (Verified 11/08/19 14:29) Height: 1.63 m Weight: 77.366 kg Patient Problems: Current Active Problems Laryngeal spasm (Acute) Aspiration pneumonia (Acute) SIRS (systemic inflammatory response syndrome) (Acute) Overweight (BMI 25.0-29.9) (Acute) Hyperlipemia, mixed (Chronic) Depression (Chronic) - VTE Risk Labs: VTE Related Lab Results Hgb 14.0 g/dL (12.2-16.2) 04/05/20 06:45 Hct 43.3 % (37.0-47.0) 04/05/20 06:45 Plt Count 269 K/mm3 (142-424) 04/05/20 06:45 VTE Score: 3 VTE Risk Level: Low Risk - Prophylaxis VTE Prophylaxis Ordered?: Yes Types of VTE Prophylaxis: TEDS Knee High Location of Applied Device: Bilateral Lower Extremeties
--- NOTE | 2020-04-05 15:17 | PC.NURSE ---
cup given to pt after treatment for sputum simple. dry cough at this time.
--- NOTE | 2020-04-05 16:18 | PC.NURSE ---
PT IS RESTING IN BED. NO COMPLAINTS OF DISCOMFORT OR SOA. ALERT AND ORIENTED X3. PT STATES SHE FEELS MUCH BETTER NOW THAN SHE DID WHEN SHE ARRIVED TO THE HOSPITAL FOR SURE. PT DID NOT EAT ANY LUNCH BUT HAS BEEN DRINKING BOTTLED WATER. O2 SATURATION 93-96% ON 2 L NC. LUNG SOUNDS DIMINISHED. ABDOMEN SOFT/NON TENDER WITH ACTIVE BOWEL SOUND. PT STATES HER LAST BOWEL MOVEMENT WAS YESTERDAY. VSS. WILL CONTINUE TO MONITOR.
--- NOTE | 2020-04-05 21:00 | XR_ITS ---
PROCEDURE: XR SOFT TISSUE NECK CLINICAL INDICATION: choking COMPARISON: No exams were available for comparison FINDINGS: There is straightening of the normal curvature of the cervical spine suggesting possible muscle spasm. Mild multilevel degenerate changes are seen mid cervical spine. The prevertebral soft tissues are normal. The epiglottis appears normal. The oral pharyngeal airway and upper trachea appear normal. IMPRESSION: Possible mild muscle spasm, no other significant abnormality noted Dictated by: Dr. William Evans MD 04/06/2020 08:06 Dr. William Evans MD in [place] 04/06/2020 08:06
--- NOTE | 2020-04-05 21:00 | XR_ITS ---
PROCEDURE: XR CHEST 2V CLINICAL HISTORY: choking/sob COMPARISON: CR XR CHEST PORTABLE from 04/05/2020 CR XR CHEST 2V from 04/05/2020 FINDINGS: The cardiomediastinal silhouette and pulmonary vascularity are within normal limits. The lung cameron are well expanded. There is a horizontal opacity at the left base just above the left hemidiaphragm suggesting atelectasis although a minimal pneumonic infiltrate cannot be excluded. A small amount of pleural fluid at the left costophrenic angle is a possibility. The left upper lung field and right lung cameron are clear. IMPRESSION: Left basilar atelectasis with possible associated developing pneumonic infiltrate and/or small amount of pleural fluid Dictated by: Dr. William Evans MD 04/06/2020 08:04 Dr. William Evans MD in [place] 04/06/2020 08:04
[2020-04-06] VITALS: BP 123/67; PULSE 93; RESP 17; TEMP 37.2; O2SAT 96
[2020-04-06 04:00] VITALS: BP 119/56; PULSE 86; RESP 17; TEMP 37; O2SAT 94
--- NOTE | 2020-04-06 05:44 | PC.NURSE ---
Pt is A&ox4. Pt has slept t/o most of this shift. Lung sounds diminished bilat t/o. Dry, nonproductive cough noted. Active bowel sounds in all 4 quads, no BM noted. Pt has gotten up and taken self to the bathroom this shift w/ no issues. No other acute changes or complaints at this time.
[2020-04-06 06:14] VITALS: PULSE 87; PULSE 89; O2SAT 95
[2020-04-06 06:19] VITALS: RESP 16
[2020-04-06 07:08] LABS: Lymphocytes # 1.1 K/mm3 (0.7-4.5); Lymphocytes % 10.2 % (10-50); Mean Corpuscular HGB Conc 32.7 g/dL (31.8-35.4); Mean Corpuscular Hemoglobin 29.6 pg (27.0-31.2); Mean Corpuscular Volume 90.5 fl (81-99); Mean Platelet Volume 7.7 fl (7.4-10.4); Monocytes # 0.4 K/mm3 (0.1-1.0); Neutrophils # 8.9 K/mm3 (1.8-7.8); Neutrophils % 85.8 % (37.0-80.0); Platelet Count 205 K/mm3 (142-424); Red Blood Count 3.86 M/mm3 (4.20-5.40); Red Cell Distribution Width 13.3 % (11.5-17.5); White Blood Count 10.4 K/mm3 (4.8-10.8)
[2020-04-06 07:11] LABS: Chloride 110 mmol/L (98-107); Sodium 140 mmol/L (136-145)
[2020-04-06 07:12] LABS: Potassium 4.3 mmoL/L (3.5-5.1)
[2020-04-06 07:14] LABS: Blood Urea Nitrogen 12 mg/dl (7-17); Creatinine Clearance Estimated 132 mL/min (50-200); Estimated Glomerular Filt Rate 103 ml/min (>60); GFR (African American) 125 ML/MIN (>60)
[2020-04-06 07:15] LABS: Anion Gap 10.3 mEq/L (5-15); Calcium 9.5 mg/dl (8.4-10.2); Carbon Dioxide 24 mmol/L (22.0-30.0); Glucose 146 mg/dl (74-100); Magnesium 1.9 mg/dl (1.6-2.3)
[2020-04-06 07:17] LABS: MANUAL DIFFERENTIAL MANUAL DIFFERENTIAL (MANUAL DIFF)
[2020-04-06 07:30] LABS: Lymphocytes % 9 % (10-50); Neutrophils % 86 % (42-76); Platelet Estimate Normal; RBC Morphology Normal; Total Cells Counted 100
[2020-04-06 08:00] VITALS: BP 126/70; PULSE 91; RESP 18; TEMP 36.8; O2SAT 92
[2020-04-06 08:20] LABS: Hemoglobin 11.6 g/dL (12.2-16.2)
--- NOTE | 2020-04-06 09:09 | HMH.DCSUM ---
General - General Admission date:: 04/05/20 Discharge date: 04/06/20 HPI HPI: this pt with recent covid-19 vaccines and had ed visit as she awoke with n/v and vasovagal episode and sob - she was treated and improved and d/c home but in a few hrs had sob with chills - pt with abn cxr and was admitted for treatment with steroids - resp treatment and abx Hospital Course Hospital Course: pt has did well on abx and steroids with improved sx- her vital signs stable and labs ok and tolerating diet - will d/c on meds and ent as follow up Objective Vital signs: Temp Pulse Resp BP Pulse Ox 98.2 F 91 H 18 126/70 92 L 04/06/20 08:00 04/06/20 08:00 04/06/20 08:00 04/06/20 08:00 04/06/20 08:00 no acute distress - *Routine HEENT Exam Head: Present: normocephalic Eye: Present: EOMI, PERRL ENT: Present: mucous membranes moist - *Routine Neck Exam Present: supple. Absent: JVD - *Routine Respiratory Exam Present: CTA bilaterally - *Routine Cardiovascular Exam Present: RRR. Absent: murmur, rubs - *Routine Abdominal Exam Present: soft - *Routine Extremities Exam Absent: calf tenderness - *Routine Skin Exam Present: intact - *Routine Neurological Exam Present: alert, CN II-XII intact - Routine Psychiatric Exam Present: normal affect Results Labs on day of discharge: Labs from last 24 hours 04/06/20 04/06/20 06:16 06:16 WBC 10.4 RBC 3.86 L Hgb 11.6 L D Hct 35.0 L MCV 90.5 MCH 29.6 MCHC 32.7 RDW 13.3 Plt Count 205 MPV 7.7 Neut % (Auto) 85.8 H Lymph % (Auto) 10.2 [place] % (Auto) 4.0 Eos % (Auto) 0.0 L Baso % (Auto) 0.0 L Neut # (Auto) 8.9 H Lymph # (Auto) 1.1 [place] # (Auto) 0.4 Eos # (Auto) 0.0 Baso # (Auto) 0.0 Total Counted 100 Neutrophils % (Manual) 86 H Band Neutrophils % 5.0 Lymphocytes % (Manual) 9 L Platelet Estimate Normal RBC Morphology Normal Sodium 140 Potassium 4.3 Chloride 110 H Carbon Dioxide 24 Anion Gap 10.3 BUN 12 Creatinine 0.60 D Estimated Creat Clear 132 Estimated GFR 103 Est GFR ( Amer) 125 D Glucose 146 H Calcium 9.5 Magnesium 1.9 DS: Diagnosis - Discharge Diagnosis (1) Overweight (BMI 25.0-29.9) Status: Acute (2) Laryngeal spasm Status: Acute (3) Aspiration pneumonia Status: Acute (4) SIRS (systemic inflammatory response syndrome) Status: Acute (5) Hyperlipemia, mixed Status: Chronic (6) Depression Status: Chronic Discharge Plan - Patient Discharge Instructions ACTIVITY: Continue current activity DIET: continue same diet - Follow up Plan Disposition: Home, Self-Retirement Medications: Home Medications Medication Instructions Recorded Confirmed Type albuterol sulfate 90 mcg/actuation 2 puff INHALATION Q6H PRN 10/13/18 04/05/20 History aerosol inhaler Montelukast Sodium [Singulair] 10 mg PO PM 04/05/20 04/05/20 History Sertraline HCl [Zoloft] 150 mg PO DAILY 04/05/20 04/05/20 History Simvastatin 40 mg PO HS 04/05/20 04/05/20 History levoFLOXacin [Levaquin 500mg 500 mg PO DAILY 04/05/20 04/05/20 History tab] predniSONE [Prednisone 20mg 20 mg PO BID #10 tab 04/06/20 Rx Tab] Prescriptions/Medication Reconciliation: New predniSONE [Prednisone 20mg Tab] 20 mg PO BID #10 tab Continued albuterol sulfate 90 mcg/actuation aerosol inhaler 2 puff INHALATION Q6H PRN PRN Reason: Shortness Of Breath Or Wheezing levoFLOXacin [Levaquin 500mg tab] 500 mg PO DAILY Sertraline HCl [Zoloft] 150 mg PO DAILY Simvastatin 40 mg PO HS Montelukast Sodium [Singulair] 10 mg PO PM - Problem Reconciliation Problems Reviewed?: Yes
== END 2020-04-06 09:58 | disposition home or self-care (01) ==
LOC: ER 08:29 → 2ND 08:37
PROVIDERS: Admitting Provider Emergency Medicine; Emergency Provider Emergency Medicine; PCP Nurse Practitioner Family; Visit Provider Emergency Medicine
DX: J69.0 Pneumonitis due to inhalation of food and vomit (principal); R65.10 Systemic inflammatory response syndrome (SIRS) of non-infectious origin without acute organ dysfunction; J38.5 Laryngeal spasm; Z79.899 Other long term (current) drug therapy; Z79.51 Long term (current) use of inhaled steroids
CPT/HCPCS: 36415; 70360; 71045; 71046; 80048; 82803; 83605; 83735; 85007; 85025; 87040; 93005; 94640; 96365; 96367; 96375; 99284; G0378; J1956; U0003

== ENCOUNTER → 2020-04-16 18:02 | Outpatient (CLI) | payer BC, SELFPAY ==
[2020-04-16 19:27] LABS: Basophils % 0.7 % (0.1-2.0); Eosinophils # 0.3 K/mm3 (0.0-0.4); Hematocrit 39.5 % (37.0-47.0); Hemoglobin 12.7 g/dL (12.2-16.2); Lymphocytes # 1.7 K/mm3 (0.7-4.5); Lymphocytes % 25.6 % (10-50); Mean Corpuscular HGB Conc 32.2 g/dL (31.8-35.4); Mean Corpuscular Hemoglobin 29.5 pg (27.0-31.2); Mean Corpuscular Volume 91.4 fl (81-99); Mean Platelet Volume 8.8 fl (7.4-10.4); Monocytes # 0.3 K/mm3 (0.1-1.0); Monocytes % 4.1 % (1.7-9.3); Neutrophils # 4.3 K/mm3 (1.8-7.8); Neutrophils % 65.7 % (37.0-80.0); Platelet Count 271 K/mm3 (142-424); Red Blood Count 4.32 M/mm3 (4.20-5.40); Red Cell Distribution Width 13.1 % (11.5-17.5); White Blood Count 6.6 K/mm3 (4.8-10.8)
[2020-04-16 19:30] LABS: Chloride 104 mmol/L (98-107); Sodium 138 mmol/L (136-145)
[2020-04-16 19:31] LABS: Potassium 4.1 mmoL/L (3.5-5.1)
[2020-04-16 19:33] LABS: Alanine Aminotransferase 27 U/L (12-78); Albumin Level 4.1 g/dl (3.5-5.0); Albumin/Globulin Ratio 1.5 (1.1-1.8); Alkaline Phosphatase 71 U/L (38-126); Anion Gap 11.1 mEq/L (5-15); Aspartate Amino Transferase 33 U/L (14-36); Bilirubin,Total 0.6 mg/dl (0.2-1.3); Blood Urea Nitrogen 20 mg/dl (7-17); Carbon Dioxide 27 mmol/L (22.0-30.0); Cholesterol 215 mg/dl (140-200); Estimated Glomerular Filt Rate 87 ml/min (>60); GFR (African American) 105 ML/MIN (>60); Globulin 2.7 g/dL (1.3-3.2); Total Protein,Serum 6.8 g/dl (6.3-8.2); Triglycerides 280 mg/dl (30-150); VLDL Cholesterol 56 mg/dL (0-40)
[2020-04-16 19:34] LABS: Chol/HDL Ratio 4.1 (1-3.5); Glucose 172 mg/dl (74-100); HDL Cholesterol 53 mg/dl (40-60)
[2020-04-16 19:46] LABS: Direct LDL Cholesterol 109.46 mg/dL (100-129)
[2020-04-16 19:50] LABS: 25-OH Vitamin D, Total 23.5 ng/mL (30-100)
[2020-04-16 19:53] LABS: T4 (Thyroxine) 6.5 ug/dl (5.53-11.0)
[2020-04-16 20:57] LABS: Hemoglobin A1C 6.1 % (4.0-6.0)
[2020-04-18 14:43] LABS: C-Peptide 10.3 ng/mL (1.1-4.4)
== END ==
PROVIDERS: Visit Provider Nurse Practitioner Family
DX: R73.09 Other abnormal glucose (principal); E66.3 Overweight; E78.2 Mixed hyperlipidemia; E55.9 Vitamin D deficiency, unspecified; Z79.899 Other long term (current) drug therapy
CPT/HCPCS: 80053; 80061; 82306; 83036; 84436; 84443; 84681; 85025

== ENCOUNTER 2020-04-26 09:01 | Emergency (ER) | payer BC, SELFPAY ==
[2020-04-26 09:18] VITALS: BP 128/97; PULSE 72; RESP 18; TEMP 36.6; O2SAT 100; BMI 28.8
--- NOTE | 2020-04-26 09:30 | HMH.EDUTC ---
[facility] Disposition Clinical Impression: Photoallergic dermatitis Disposition: Home, Self-Care Condition on Discharge: Good Instructions: Photosensitivity (Alternative Therapy) Additional Instructions: apply cool wash cloth to rash treat like sun burn steroids do not take bactrium if symptoms worsen or do not improve return limit sunlight Prescriptions: predniSONE [Prednisone 20mg Tab] 20 mg PO BID #10 tab Transmission Status: Pending to [facility] Referrals: Judi Alvarez APRN [Primary Care Provider] - Time of Disposition: 09:38 Medical Decision Making - Bharat Inquiry Pt receiving controlled substance: No Vital Signs: 04/26/20 09:18 Temperature 98 F Temperature Source Tympanic Pulse Rate [Right] 72 Respiratory Rate 18 Blood Pressure [Right Arm] 128/97 H Blood Pressure Mean [Right Arm] 107 Blood Pressure Position [Right Arm] Supine 02 Sat by Pulse Oximetry 100 Oxygen Delivery Method Room Air Orders (Tests/Meds): ED MEDICATIONS Discontinued Medications Generic Name Dose Route Start Last Admin Trade Name Freq PRN Reason Stop Dose Admin Dexamethasone Sodium Phosphate 4 mg 04/26/20 09:25 Dexamethasone 4mg/Ml 1ml Vial IM 04/26/20 09:26 ONCE ONE [facility] HPI - General Chief complaint: Urgent Treatment Center Stated complaint: allergic reaction Time Seen by Provider: 04/26/20 09:30 Mode of Arrival: Ambulatory Source of Information: Patient Limitations: No Limitations Description of Symptoms (Recalled from Triage Doc. by RN): pt has been on bactrim, she is now presenting with an allergic rxn and isn't sure what from. pt is having a red, raised rash anywhere that sun hits her. i.e. face, neck, hands, arms, shins, and feet. HEENT Symptoms (Recalled from RN notes): Yes (allergic rxn rash on most parts of the skin) Resp Symptoms (Recalled from RN notes): No Skin Symptoms (Recalled from RN notes): No MS Symptoms (Recalled from RN notes): No Functional Status (Recalled from RN notes): na - History of Present Illness Provider Complaint: 55 yr old female presents for rash to face,neck,lower arms ad lower legs. Pt states she has been on bactrium and was in the sun. Pt states she stopped bactrium on tuesday morning, has been on claritin,zyrtec and benadryl without improvement. - Related Data Home Medications Medication Instructions Recorded Confirmed albuterol sulfate 90 mcg/actuation 2 puff INHALATION Q6H PRN 10/13/18 04/23/20 aerosol inhaler Sertraline HCl [Zoloft] 150 mg PO DAILY 04/05/20 04/23/20 Simvastatin 40 mg PO HS 04/05/20 04/23/20 Previous Rx's Medication Instructions Recorded montelukast 10 mg tablet 10 mg PO PM #90 tab 04/16/20 phentermine 37.5 mg tablet 37.5 mg PO DAILY #30 tab 04/23/20 predniSONE [Prednisone 20mg 20 mg PO BID #10 tab 04/26/20 Tab] Allergies Allergy/AdvReac Type Severity Reaction Status Date / Time sulfamethoxazole Allergy Intermediate Rash Verified 04/26/20 09:25 [From Bactrim] trimethoprim [From Bactrim] Allergy Intermediate Rash Verified 04/26/20 09:25 - Worker's Comp Is this a Worker's Comp case?: No [facility] History - Hepatitis A Screen Drug use history?: No High risk sexual behaviors?: No History of sexually transmitted infection?: No Currently employed?: No Childcare worker?: No Do you have indoor plumbing?: Yes Do you have electricity?: Yes Attestation statement:: This patient has been screened for Hepatitis A risk factors. I have reviewed the patient's past medical history: Yes Medical History: Reports:: Asthma, Depression, Diabetes Mellitus Type 2, Hyperlipidemia Denies:: Cancer, Diabetes Mellitus Type 1, MRSA Comment: allergies Other Surgeries: Yes: Colonoscopy Amputation: No Fractures: No - Social History Smoking Status: Never smoker Alcohol Intake: never Alcohol Intake Frequency:: 0-2 drinks per day Substance Use Type: denies use Occupational Status: employed Housing: h
[2020-04-26 09:42] VITALS: BP 122/87; PULSE 78; RESP 14; TEMP 36.6
== END 2020-04-26 09:50 | disposition home or self-care (01) ==
LOC: ER 09:04 → UTC 09:05
PROVIDERS: Emergency Provider Nurse Practitioner Family; PCP Nurse Practitioner Family
DX: L56.8 Other specified acute skin changes due to ultraviolet radiation (principal); E11.9 Type 2 diabetes mellitus without complications; J45.909 Unspecified asthma, uncomplicated; F33.1 Major depressive disorder, recurrent, moderate; E78.5 Hyperlipidemia, unspecified; Z79.899 Other long term (current) drug therapy
CPT/HCPCS: 96372; 99202; G0463

== ENCOUNTER → 2020-09-15 13:10 | Outpatient (CLI) | payer BC, SELFPAY ==
[2020-09-15 15:41] LABS: Basophils # 0.1 K/mm3 (0-0.2); Basophils % 1.3 % (0.1-2.0); Eosinophils # 0.2 K/mm3 (0.0-0.4); Eosinophils % 4.5 % (0.1-12.0); Hematocrit 41.7 % (37.0-47.0); Hemoglobin 13.5 g/dL (12.2-16.2); Lymphocytes # 1.5 K/mm3 (0.7-4.5); Lymphocytes % 34.8 % (10-50); Mean Corpuscular HGB Conc 32.5 g/dL (31.8-35.4); Mean Corpuscular Hemoglobin 29.1 pg (27.0-31.2); Mean Corpuscular Volume 89.6 fl (81-99); Mean Platelet Volume 8.7 fl (7.4-10.4); Monocytes # 0.3 K/mm3 (0.1-1.0); Monocytes % 6.8 % (1.7-9.3); Neutrophils # 2.3 K/mm3 (1.8-7.8); Neutrophils % 52.6 % (37.0-80.0); Platelet Count 222 K/mm3 (142-424); Red Blood Count 4.65 M/mm3 (4.20-5.40); White Blood Count 4.3 K/mm3 (4.8-10.8)
[2020-09-15 15:50] LABS: Microalbumin/Creatinine Ratio 20.8
[2020-09-15 15:57] LABS: Creatinine,Urine Random 36 mg/dL (Not Estab.)
[2020-09-15 16:35] LABS: Hemoglobin A1C 5.7 % (4.0-6.0)
[2020-09-15 16:36] LABS: Anion Gap 16.5 mEq/L (5-15); Blood Urea Nitrogen 10 mg/dl (7-17); Calcium 9.6 mg/dl (8.4-10.2); Carbon Dioxide 28 mmol/L (22.0-30.0); Chloride 101 mmol/L (98-107); Estimated Glomerular Filt Rate 128 ml/min (>60); GFR (African American) 154 ML/MIN (>60); Glucose 83 mg/dl (74-100); Potassium 4.5 mmoL/L (3.5-5.1); Sodium 141 mmol/L (136-145)
== END ==
PROVIDERS: Visit Provider Nurse Practitioner Family
DX: E11.9 Type 2 diabetes mellitus without complications (principal)
CPT/HCPCS: 80048; 82043; 82570; 83036; 85025

== ENCOUNTER → 2021-01-20 16:02 | Outpatient (CLI) | payer BC, SELFPAY ==
--- NOTE | 2021-01-20 16:08 | XR_ITS ---
PROCEDURE: XR FOOT LT MIN 3V CLINICAL INDICATION: left foot pain COMPARISON: No exams were available for comparison FINDINGS: No fracture or dislocation. No lytic or blastic change. There is normal mineralization. Minimal osteoarthritic changes are present at the 1st MTP joint. Other findings:None. IMPRESSION: Minimal osteoarthritic change 1st MTP joint otherwise negative Dictated by: Luca Morrison MD 01/20/2021 16:26 Luca Morrison MD in [place] 01/20/2021 16:26
== END ==
PROVIDERS: PCP Nurse Practitioner Family; Visit Provider Nurse Practitioner Family
DX: M79.672 Pain in left foot (principal)
CPT/HCPCS: 73630

== ENCOUNTER → 2021-02-03 12:46 | Outpatient (CLI) | payer BC, SELFPAY ==
--- NOTE | 2021-02-03 12:46 | MM_ITS ---
PROCEDURE INFORMATION: Exam: MG Bilateral Screening 3D Mammography Exam date and time: 02/03/2021 12:46 PM Age: 55 years old Clinical indication: screening mammogram TECHNIQUE: Imaging protocol: Bilateral screening tomosynthesis and 2D mammography including computer-aided detection (CAD) when performed. COMPARISON: 1. MG MM DIG SCREENING MAMM BI W/CAD 01/21/2020 4:03 PM 2. MG MM DIG SCREENING MAMM BI W/CAD 01/12/2019 8:14 AM 3. MG SCBI MM Dig screening mamm BI w/CAD 12/22/2017 4:03 PM 4. MG DMDXUAVR DIG MAMM-DX UNI A/VW-RT W/CAD 01/05/2017 1:12 PM FINDINGS: MAMMOGRAPHY: Breast composition: The breast tissue is heterogeneously dense, which may obscure small masses. Mass: None. Architectural distortion: No new or suspicious architectural distortion. Calcifications: No new or suspicious calcifications are present Asymmetric density: No new or suspicious asymmetric density is present Skin thickening: None. Axillary adenopathy: None. IMPRESSION: No mammographic evidence of malignancy. Recommend annual screening mammography unless otherwise clinically indicated. ASSESSMENT: BI-RADS category 1: Negative
== END ==
PROVIDERS: PCP Nurse Practitioner Family; Visit Provider Nurse Practitioner Family
DX: Z12.31 Encounter for screening mammogram for malignant neoplasm of breast (principal)
CPT/HCPCS: 77063; 77067

== ENCOUNTER → 2021-02-09 16:15 | Outpatient (CLI) | payer BC, SELFPAY ==
[2021-02-09 16:43] LABS: Blood Urea Nitrogen 30 mg/dl (7-17); Estimated Glomerular Filt Rate 74 ml/min (>60); GFR (African American) 90 ML/MIN (>60)
== END ==
PROVIDERS: Visit Provider Podiatrist
DX: Z01.812 Encounter for preprocedural laboratory examination (principal)
CPT/HCPCS: 36415; 82565; 84520

== ENCOUNTER → 2021-02-12 14:19 | Outpatient (CLI) | payer BC, SELFPAY ==
--- NOTE | 2021-02-12 14:19 | MR_ITS ---
PROCEDURE INFORMATION: Exam: MR Left Lower Extremity Other Than Joint Without and With Contrast; Foot Exam date and time: 02/12/2021 2:19 PM Age: 55 years old Clinical indication: Pain; Foot; Left; Additional info: Left foot pain TECHNIQUE: Imaging protocol: MR of the Left lower extremity without and with intravenous contrast. Exam focused on the foot. Contrast material: PROHANCE; Contrast volume: 70 ml; Contrast route: IV; COMPARISON: CR XR FOOT LT MIN 3V 01/20/2021 4:09 PM FINDINGS: Limitations: The large [id number] utilized to image the entire foot and ankle results in proportionally lower anatomic detail. Bones and cartilage: The medial (tibial) sesamoid bone along the plantar first metatarsal head demonstrates severe edema. This appearance can be produced by sesamoiditis, nondisplaced fracture, or osteonecrosis. Detail in this region is limited by the large field of view of the study. There is no skin ulcer to suggest osteomyelitis. There are small dorsal and plantar calcaneal enthesophytes. Moderate hallux valgus is associated with a moderate bunion deformity. There is mild primary osteoarthritis of the first metatarsophalangeal joint. Joint spaces: Mild joint effusions involve the first metatarsophalangeal joint and ankle joint. LIGAMENTS: Lisfranc ligament: Unremarkable. No evidence of tear. TENDONS: Flexor tendons of foot: Unremarkable. No evidence of tear. Tibialis posterior tendon: Unremarkable as visualized. Peroneal tendons: Mild tenosynovitis involves the peroneal tendon sheath. No tear. Extensor tendons of foot: Unremarkable. No evidence of tear. Tibialis anterior tendon: Unremarkable as visualized. Tarsal canal (Sinus tarsi): Unremarkable. Tarsal tunnel: Unremarkable. Bursae: Focal fluid between the first through fourth metatarsal heads may represent intermetatarsal bursitis. Fluid can be present between the metatarsal heads in asymptomatic patients. Muscles: Moderate to severe atrophy of the abductor digiti minimi muscle suggests entrapment of the inferior calcaneal nerve (Blount nerve). Soft tissues: The plantar plate of the great toe metatarsophalangeal joint is torn. Plantar fascia: The proximal plantar fascia is mildly thickened without significant edema consistent suggesting mild chronic plantar fasciitis (fasciopathy). IMPRESSION: 1. Severe edema involving the medial (tibial) sesamoid at the plantar first metatarsal head, which could represent sesamoiditis, nondisplaced fracture, or osteonecrosis. 2. 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 3. Tear of the great toe metatarsophalangeal joint plantar plate. 4. Fluid between the first through fourth metatarsal heads, suggesting intermetatarsal bursitis. 5. Moderate hallux valgus with mild primary osteoarthritis of the first metatarsophalangeal joint. 6. Mild tenosynovitis of the peroneal tendons. 7. Mild chronic plantar fasciitis (fasciopathy).
== END ==
PROVIDERS: PCP Nurse Practitioner Family; Visit Provider Podiatrist
DX: M79.672 Pain in left foot (principal); M72.2 Plantar fascial fibromatosis; M84.375A Stress fracture, left foot, initial encounter for fracture
CPT/HCPCS: 73720; A9576

== ENCOUNTER 2021-02-28 09:11 | Emergency (ER) | payer BC, SELFPAY ==
[2021-02-28 09:36] VITALS: BP 149/83; PULSE 87; RESP 18; TEMP 38; O2SAT 97; BMI 25.7
--- NOTE | 2021-02-28 10:04 | HMH.EDUTC ---
[facility] Disposition Clinical Impression: Viral syndrome Disposition: Home, Self-Care Condition on Discharge: Good Instructions: Preventing the Spread of Coronavirus Discharge Instructions, DI for COVID-19 (Suspected or Confirmed ) Additional Instructions: Drink plenty of fluids. Take tylenol or ibuprofen for pain or fever. Take the medications as directed. Follow up with your regular doctor. GO TO THE ER FOR ANY WORSENING SYMPTOMS Quarantine until you know the results of your covid-19 test. If it is positive, the health department should call you and give you further instructions about your length of Quarantine and other things. Notify your school or workplace of your results and follow their instructions regarding return to work/school. Referrals: Judi Alvarez APRN [Primary Care Provider] - Time of Disposition: 10:16 Medical Decision Making - Medical Records Medical records reviewed: No: I reviewed the patient's medical records. - Bharat Inquiry Pt receiving controlled substance: No Vital Signs: 02/28/21 09:36 Temperature 100.4 F H Temperature Source Oral Pulse Rate [Left] 87 Respiratory Rate 18 Blood Pressure [Right Arm] 149/83 H Blood Pressure Mean [Right Arm] 105 02 Sat by Pulse Oximetry 97 Orders (Tests/Meds): ORDERS Category Date Time Status Covid-19 Nasal PCR ([facility]) Routine Lab 02/28/21 09:39 Received [facility] HPI - General Stated complaint: covid test Time Seen by Provider: 02/28/21 10:04 Mode of Arrival: Ambulatory Source of Information: Patient Limitations: No Limitations Description of Symptoms (Recalled from Triage Doc. by RN): pt wants a covid test. pt declines other swabs. pt c/o a sore throat, nasal drainage, MADRIGAL and sinus pressure. ongoing since yesterday. HEENT Symptoms (Recalled from RN notes): Yes (sore throat, sinus pressure/drainage and MADRIGAL) Resp Symptoms (Recalled from RN notes): No Skin Symptoms (Recalled from RN notes): No MS Symptoms (Recalled from RN notes): No Functional Status (Recalled from RN notes): wnl - History of Present Illness Provider Complaint: She states that since yesterday she has had sinus congestion, body aches, nausea, and low grade fever. She denies sore throat and refuses a strep swab. She has been vaccinated against covid-19. - Related Data Home Medications Medication Instructions Recorded Confirmed albuterol sulfate 90 mcg/actuation 2 puff INHALATION Q6H PRN 10/13/18 02/02/21 aerosol inhaler Previous Rx's Medication Instructions Recorded simvastatin 40 mg tablet See Rx Instructions .ROUTE 10/03/20 .COMPLEX #90 tablet montelukast 10 mg tablet See Rx Instructions .ROUTE 11/21/20 .COMPLEX #90 tab omeprazole 20 mg tablet,delayed 20 mg PO BID #60 tab 11/24/20 release sertraline 100 mg tablet See Rx Instructions .ROUTE 01/28/21 .COMPLEX #45 tab meloxicam 7.5 mg tablet 7.5 mg PO ONCE 30 Days #30 tab 02/02/21 methylprednisolone 4 mg tablets in 4 mg PO DAILY #21 tab 02/02/21 a dose pack Allergies Allergy/AdvReac Type Severity Reaction Status Date / Time sulfamethoxazole Allergy Intermediate Rash Verified 02/02/21 10:01 [From Bactrim] trimethoprim [From Bactrim] Allergy Intermediate Rash Verified 02/02/21 10:01 - Worker's Comp Is this a Worker's Comp case?: No [facility] History - Hepatitis A Screen Drug use history?: No High risk sexual behaviors?: No History of sexually transmitted infection?: No Currently employed?: No Childcare worker?: No Do you have indoor plumbing?: Yes Do you have electricity?: Yes Attestation statement:: This patient has been screened for Hepatitis A risk factors. I have reviewed the patient's past medical history: Yes Medical History: Reports:: Asthma, Depression, Diabetes Mellitus Type 2, Hyperlipidemia Denies:: Cancer, Diabetes Mellitus Type 1, MRSA Comment: allergies Other Surgeries: Yes: Colonoscopy Amputation: No Fractures: No - Social History Smoking
[2021-02-28 10:30] VITALS: BP 149/83; PULSE 87; RESP 18; TEMP 38
== END 2021-02-28 10:30 | disposition home or self-care (01) ==
PROVIDERS: Emergency Provider Nurse Practitioner Family; PCP Nurse Practitioner Family
DX: U07.1 COVID-19 (principal); B34.9 Viral infection, unspecified; E78.5 Hyperlipidemia, unspecified; E11.9 Type 2 diabetes mellitus without complications
CPT/HCPCS: 99202; C9803; G0463; U0003; U0005

== ENCOUNTER → 2021-03-24 08:47 | Outpatient (CLI) | payer BC, SELFPAY ==
[2021-03-25 08:33] LABS: Covid-19 Nasal PCR Sendout Lex NOT DETECTED
== END ==
PROVIDERS: Visit Provider Nurse Practitioner
DX: Z20.822 Contact with and (suspected) exposure to COVID-19 (principal)
CPT/HCPCS: C9803; U0004; U0005

== ENCOUNTER 2021-03-26 19:39 | Inpatient (IN) | payer BC, SELFPAY ==
[2021-03-26 19:40] VITALS: RESP 18; TEMP 37.7; O2SAT 97; BMI 25.7
[2021-03-26 19:45] VITALS: BP 170/87; PULSE 91; O2SAT 96
--- NOTE | 2021-03-26 19:55 | CT_ITS ---
PROCEDURE INFORMATION: Exam: CT Abdomen And Pelvis With Contrast Exam date and time: 03/26/2021 7:55 PM Age: 56 years old Clinical indication: Abdominal pain TECHNIQUE: Imaging protocol: Computed tomography of the abdomen and pelvis with contrast. Total images: 315 Radiation optimization: All CT scans at this facility use at least one of these dose optimization techniques: automated exposure control; mA and/or kV adjustment per patient size (includes targeted exams where dose is matched to clinical indication); or iterative reconstruction. Contrast material: ISOVUE; Contrast volume: 75 ml; Contrast route: IV; COMPARISON: ABDPELW CT ABD PELVIS W/ CONTRAST 11/25/2015 11:01 AM FINDINGS: Lungs: Minor atelectasis and granulomatous calcification in the left lung base. Heart: Heart size normal. Mediastinal space: The visualized distal esophagus is largely contracted without gross abnormality. Liver: Normal contour. No mass lesions. No intrahepatic biliary ductal dilatation. Gallbladder and bile ducts: Normal. No calcified stones. No ductal dilation. Pancreas: Normal. No inflammatory changes or ductal dilation. Spleen: Granulomatous calcifications in the spleen without acute splenic abnormality. Adrenal glands: Normal. No adrenal mass. Kidneys and ureters: No acute abnormalities. No hydronephrosis or hydroureter. No urinary tract stones are identified. Stomach and bowel: The stomach is largely contracted without gross abnormality. Nondilated small bowel without acute abnormality. The adjacent mid to distal sigmoid colon demonstrates long segment wall thickening most consistent with reactive changes due to proximity to the appendicitis. There is mild-moderate sigmoid diverticulosis without localized changes of diverticulitis. Appendix: The appendix tracks into the central pelvis where the tip is dilated and inflamed with a discontinuous posterior wall and adjacent 2.5 x 1.6 cm fluid collection with moderate surrounding inflammatory stranding. The findings are consistent with tip appendicitis with locally contained perforation and a small periappendiceal abscess. There is no intraperitoneal free air to suggest free intraperitoneal perforation at this time Intraperitoneal space: Trace intrapelvic free fluid. No free air. Vasculature: Mild atherosclerotic aortoiliac calcification without aneurysm. Lymph nodes: No adenopathy. Urinary bladder: Unremarkable as visualized. Reproductive: Unremarkable as visualized. Bones/joints: No acute osseous abnormalities. Soft tissues: Very small fatty umbilical hernia . No evidence of associated bowel herniation or strangulation. IMPRESSION: 1. There is evidence of acute appendicitis involving the tip of the appendix in the central pelvis, with locally contained perforation and a small 2.5 x 1.6 cm periappendiceal abscess. 2. Moderate surrounding inflammatory stranding in the pelvis with reactive wall thickening in the mid to distal sigmoid colon. 3. Trace intrapelvic free fluid. No free air. 4. Distal colonic diverticulosis without changes of diverticulitis. 5. Additional nonemergent findings detailed above. 6. These findings initiated a critical results reporting process. An addendum will be issued at the time of clinician notification.
[2021-03-26 20:16] LABS: Microscopic, Urine URINE MICROSCOPIC (MICROSCOPIC)
[2021-03-26 20:19] LABS: Basophils # 0.1 K/mm3 (0-0.2); Basophils % 0.9 % (0.1-2.0); Eosinophils # 0.2 K/mm3 (0.0-0.4); Hematocrit 39.6 % (37.0-47.0); Hemoglobin 12.9 g/dL (12.2-16.2); Lymphocytes # 1.4 K/mm3 (0.7-4.5); Lymphocytes % 13.8 % (10-50); Mean Corpuscular HGB Conc 32.5 g/dL (31.8-35.4); Mean Corpuscular Hemoglobin 30.4 pg (27.0-31.2); Mean Corpuscular Volume 93.5 fl (81-99); Mean Platelet Volume 8.2 fl (7.4-10.4); Monocytes # 0.6 K/mm3 (0.1-1.0); Neutrophils % 77.3 % (37.0-80.0); Platelet Count 204 K/mm3 (142-424); Red Blood Count 4.24 M/mm3 (4.20-5.40); Red Cell Distribution Width 13.3 % (11.5-17.5); White Blood Count 10.3 K/mm3 (4.8-10.8)
--- NOTE | 2021-03-26 20:20 | HMH.EDNVD ---
ED Disposition Clinical Impression: Acute appendicitis Qualifiers: Acute appendicitis type: unspecified acute appendicitis type Qualified Code(s): K35.80 - Unspecified acute appendicitis Disposition: Admitted As Inpatient Condition on Discharge: Good Referrals: Judi Alvarez APRN [Primary Care Provider] - - Critical Care Critical Care Time: No Attestation: On 03/26/21, the high probability of a clinically significant, sudden or life threatening deterioration of the following system(s) required my full and direct attention, intervention and personal management. The time I documented below is in addition to time spent performing reported procedures but includes the following listed in this critical care notation. Medical Decision Making - Medical Records Medical records reviewed: Yes: I reviewed the patient's medical records. - Bharat Inquiry Pt receiving controlled substance: No Vital Signs: 03/26/21 19:40 Temperature 99.9 F H Temperature Source Oral Respiratory Rate 18 02 Sat by Pulse Oximetry 97 Oxygen Delivery Method Room Air - Lab Data Lab results reviewed: Yes: I reviewed the patient's lab results. Lab Results 03/26/21 19:50: Amylase 53, Lipase 115 03/26/21 20:00: Urine Color Yellow, Urine Appearance Clear, Urine pH 5.5, Ur Specific [place] 1.015, Urine Protein Negative, Urine Glucose (UA) Negative, Urine Ketones Negative, Urine Blood 2+, Urine Nitrate Negative, Urine Bilirubin Negative, Urine Urobilinogen 0.2, Ur Leukocyte Esterase Negative, Urine RBC 3-5, Urine WBC 3-5, Ur Squamous Epith Cells Occasional, Urine Bacteria 1+ 03/26/21 20:00: WBC 10.3, RBC 4.24, Hgb 12.9, Hct 39.6, MCV 93.5, MCH 30.4, MCHC 32.5, RDW 13.3, Plt Count 204, MPV 8.2, Neut % (Auto) 77.3, Lymph % (Auto) 13.8, Bartholomew % (Auto) 6.0, Eos % (Auto) 2.0, Baso % (Auto) 0.9, Neut # (Auto) 8.0 H, Lymph # (Auto) 1.4, Bartholomew # (Auto) 0.6, Eos # (Auto) 0.2, Baso # (Auto) 0.1 03/26/21 20:00: Sodium 136, Potassium 3.7, Chloride 103, Carbon Dioxide 27, Anion Gap 9.7, BUN 11, Creatinine 0.60, Estimated Creat Clear 111, Estimated GFR 103, Est GFR ( Amer) 125, Glucose 115 H, Calcium 9.3, Total Bilirubin 0.6, AST 36, ALT 23, Alkaline Phosphatase 91, C-Reactive Protein 166.7 H, Total Protein 7.6, Albumin 4.5, Globulin 3.1, Albumin/Globulin Ratio 1.5, Procalcitonin 0.071 Result diagrams: 03/26/21 20:00 03/26/21 20:00 Orders (Tests/Meds): ED MEDICATIONS Generic Name Dose Route Start Last Admin Trade Name Freq PRN Reason Stop Dose Admin Sodium Chloride 1,000 mls @ 999 mls/hr 03/26/21 20:00 03/26/21 19:59 Sod Chlor 0.9% 1000ml Bag IV 03/26/21 21:00 999 mls/hr .Q1H1M IZZY Administration Discontinued Medications Generic Name Dose Route Start Last Admin Trade Name Freq PRN Reason Stop Dose Admin Iopamidol 75 ml 03/26/21 21:01 03/26/21 21:02 Iopamidol-370 (76%);100ml Bottle IV 03/26/21 21:02 75 ml ONCE ONE Administration Sodium Chloride 10 ml 03/26/21 21:01 03/26/21 21:02 Sodium Chloride 0.9% 10ml Syr (Rad Only) IV 03/26/21 21:02 10 ml ONCE ONE Administration ORDERS Category Date Time Status Complete Blood Count Auto Diff Stat Lab 03/26/21 20:00 Results Erythrocyte Sedimentation Rate Stat Lab 03/26/21 20:00 Results - CT Data CT Scan: Abdomen, Pelvis Time Received: 21:[address] Reviewed: Yes: I have viewed the radiologist's interpretation Preliminary Findings: Abnormal (see report ) - Physician Consults Physician Consulted: gregorio Reason -: Pt condition Medical Decision Narrative: pt has acute appendicitis and will be taken to surg Nausea/Vomiting/Diarrhea HPI - General Chief complaint: Abdominal Pain Stated complaint: severe abd pain Time Seen by Provider: 03/26/21 20:00 Mode of Arrival: Ambulatory Source of Information: Patient, Medical Record Limitations: No Limitations Description of Symptoms (Recalled from ER Triage Doc. by RN): PT REPORTS BEING POSITIVE FOR COVID IN
[2021-03-26 20:26] LABS: Alanine Aminotransferase 23 U/L (12-78); Albumin Level 4.5 g/dl (3.5-5.0); Albumin/Globulin Ratio 1.5 (1.1-1.8); Alkaline Phosphatase 91 U/L (38-126); Anion Gap 9.7 mEq/L (5-15); Aspartate Amino Transferase 36 U/L (14-36); Bilirubin,Total 0.6 mg/dl (0.2-1.3); Blood Urea Nitrogen 11 mg/dl (7-17); Calcium 9.3 mg/dl (8.4-10.2); Carbon Dioxide 27 mmol/L (22.0-30.0); Chloride 103 mmol/L (98-107); Creatinine Clearance Estimated 111 mL/min (50-200); Estimated Glomerular Filt Rate 103 ml/min (>60); GFR (African American) 125 ML/MIN (>60); Globulin 3.1 g/dL (1.3-3.2); Glucose 115 mg/dl (74-100); Potassium 3.7 mmoL/L (3.5-5.1); Sodium 136 mmol/L (136-145); Total Protein,Serum 7.6 g/dl (6.3-8.2)
[2021-03-26 20:31] LABS: C-Reactive Protein 166.7 mg/L (0-4)
[2021-03-26 20:45] LABS: Procalcitonin 0.071 ng/mL (0.0-2.0)
[2021-03-26 21:11] LABS: Appearance,Urine CLEAR (Clear); Bilirubin,Urine Negative (Negative); Blood, Urine 2+ (Negative); Color,Urine YELLOW (Yellow); Glucose,Urine (UA) Negative (Negative); Ketones,Urine Negative (Negative); Leukocyte Esterase,Urine Negative (Negative); Nitrate,Urine Negative (Negative); PH,Urine 5.5 (5.0-8.5); Protein,Urine Negative (Negative); Specific Gravity, Urine 1.015 (1.005-1.030); Urobilinogen,Urine 0.2 EU/dl (0.2)
[2021-03-26 21:19] LABS: Amylase 53 U/L (30-110)
[2021-03-26 21:20] LABS: Lipase 115 U/L (23-300)
[2021-03-26 21:21] LABS: Bacteria,Urine 1+ /lpf; Squamous Epithelial Cell,Urine Occasional #/hpf (0-5)
--- NOTE | 2021-03-26 21:27 | PC.NURSE ---
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
[2021-03-26 21:31] VITALS: BP 175/92; PULSE 93; O2SAT 98
[2021-03-26 21:38] LABS: Influenza A, PCR Not Detected (NotDetected); Influenza B, PCR Not Detected (NotDetected)
[2021-03-26 21:47] LABS: Erythrocyte Sedimentation Rate 93 mm/hr (0-30)
--- NOTE | 2021-03-26 22:10 | HMH.GSHP ---
HPI HPI: This is a 56-year-old female who presented to the emergency department with increasing abdominal pain. Radiographic evidence was consistent with perforated appendicitis with small abscess. The surgical service was consulted for evaluation management/admission. Please see HPI forwarded from emergency department evaluation below. Forwarded for emergency department evaluation: Nausea/Vomiting/Diarrhea HPI - General Chief complaint: Abdominal Pain Stated complaint: severe abd pain Time Seen by Provider: 03/26/21 20:00 Mode of Arrival: Ambulatory Source of Information: Patient, Medical Record Limitations: No Limitations Description of Symptoms (Recalled from ER Triage Doc. by RN): PT REPORTS BEING POSITIVE FOR COVID IN FEB. PT REPORTS LOW ABDOMINAL PAIN TODAY AND THAT SHE HAS BEEN TAKING LARGE AMOUNTS OF MOTRIN AT HOME. PT REPORTS PAIN 4/10 AT THIS TIME. DESCRIBES SHARP THAT BEGAN ON TUESDAY. - History of Present Illness HPI Narrative: pt with progressive lower abd pain with nausea - MD complaint: nausea, abdominal pain Onset (ago): day(s) Associated Abdominal Pain: Yes Location of pain: RLQ Severity: moderate Consistency: constant Associated symptoms: denies other symptoms [facility] History Medical History: Reports:: Asthma, Depression, Diabetes Mellitus Type 2, Hyperlipidemia Denies:: Cancer, Diabetes Mellitus Type 1, MRSA *Have you ever received a pneumonia vaccine?: No *Have you received a flu vaccine this season?: No Other Surgeries: Yes: Colonoscopy Amputation: No Fractures: No - *Social History Smoking Status: Never smoker Alcohol Intake: never Alcohol Intake Frequency:: 0-2 drinks per day Substance Use Type: denies use *Occupational Status:: employed Housing: house Household Members: spouse *Travel in the last 8 weeks: None - Psychiatric History Pschychiatric History:: Reports:: Depression Family Hx:: Diabetes Review of Systems - Constitutional Denies chills - Eyes Denies change in vision - ENT Denies difficulty swallowing - *Cardiovascular Denies chest pain - *Respiratory Denies cough - *Gastrointestinal Reports abdominal pain - *Genitourinary Denies painful urination - *Musculoskeletal Denies abnormal walking - Integumentary/Breasts Denies new lesions - *Neurologic Denies localized weakness, Denies headache(s), Denies seizure-like activity - Psychiatric Denies anxiety - Endocrine Denies cold intolerance - Hematologic/Lymphatic Denies easy bleeding - Allergic/Immunologic Denies hives Meds Home Medications Medication Instructions Recorded Confirmed Type albuterol sulfate 90 mcg/actuation 2 puff INHALATION Q6H PRN 10/13/18 03/26/21 History aerosol inhaler meloxicam 7.5 mg tablet 7.5 mg PO ONCE 30 Days #30 tab 02/02/21 03/26/21 Rx Montelukast Sodium [Singulair] See Rx Instructions .ROUTE .COMPLEX 03/26/21 03/26/21 History Omeprazole 20 mg PO BID 03/26/21 03/26/21 History Sertraline HCl [Zoloft] See Rx Instructions .ROUTE 03/26/21 03/26/21 History .COMPLEX MDD 40 Simvastatin See Rx Instructions .ROUTE .COMPLEX 03/26/21 03/26/21 History Allergies Allergy/AdvReac Type Severity Reaction Status Date / Time sulfamethoxazole Allergy Intermediate Rash Verified 03/16/21 15:07 [From Bactrim] trimethoprim [From Bactrim] Allergy Intermediate Rash Verified 03/16/21 15:07 Exam Vital signs and Labs for Last 24 Hours: Temp Pulse Resp BP Pulse Ox 99.9 F H 93 H 18 175/92 H 98 03/26/21 19:40 03/26/21 21:31 03/26/21 19:40 03/26/21 21:31 03/26/21 21:31 Laboratory Results - last 24 hr 03/26/21 19:50: Amylase 53, Lipase 115 03/26/21 20:00: Urine Color Yellow, Urine Appearance Clear, Urine pH 5.5, Ur Specific [place] 1.015, Urine Protein Negative, Urine Glucose (UA) Negative, Urine Ketones Negative, Urine Blood 2+, Urine Nitrate Negative, Urine Bilirubin Negative, Urine Urobilinogen 0.2, Ur Leukocyte Esterase Negative, Urine RBC 3
--- NOTE | 2021-03-26 22:19 | PC.NURSE ---
discussed with pt the procedure and signed consent placed on pt chart. Pt placed in gown. Pt to surgery at 2219 with anesthesia and sx RN
[2021-03-26 22:43] VITALS: BP 148/73; PULSE 82; RESP 16; TEMP 38.3; O2SAT 96
[2021-03-26 22:49] LABS: Coronavirus 19, PCR Detected (NotDetected)
--- NOTE | 2021-03-26 22:49 | HMH.ANESCL ---
[facility] Anesthesia Checklist - Structural Data Admitted From: Emergency Dept Planned Operative Procedure/s: lap appy Consent for Planned Operative Procedure(s) Verified: Yes - Airway Assessment C-Spine Mobility Assessed: Yes TMJ Mobility Assessed: Yes Dentition: Good Dentition - Neurological Assessment Level of Consciousness: Awake, Alert, Appropriate - Anesthesia Plan Anesthesia Risk discussed: Yes Anesthesia Plan: Verified ASA Class: II Anesthesia Type: General [facility] History I have reviewed the patient's past medical history: Yes Medical History: Reports:: Asthma, Depression, Diabetes Mellitus Type 2, Hyperlipidemia Denies:: Cancer, Diabetes Mellitus Type 1, MRSA *Have you ever received a pneumonia vaccine?: No *Have you received a flu vaccine this season?: No Anesthesia experience/problems:: none Other Surgeries: Yes: Colonoscopy Amputation: No Fractures: No - *Social History Smoking Status: Never smoker Alcohol Intake: never Alcohol Intake Frequency:: 0-2 drinks per day Substance Use Type: denies use *Occupational Status:: employed Housing: house Household Members: spouse *Travel in the last 8 weeks: None - Psychiatric History Pschychiatric History:: Reports:: Depression Family Hx:: Diabetes
[2021-03-26 23:06] VITALS: TEMP 43
--- NOTE | 2021-03-26 23:42 | SUR.OPER ---
2342-family updated at this time
--- NOTE | 2021-03-26 23:58 | HMH.OPNOTE ---
Date of procedure: 03/26/21 Pre-op Diagnosis:: Perforated appendicitis Post-op Diagnosis:: Same Procedure performed:: Laparoscopic appendectomy Surgeon:: Enzo Minaya MD WEAVER NEEDLE LOOM:: Singh Robison Anesthesia: GETA Estimated blood loss (mL): 15 Operative findings:: Necrotic/perforated appendicitis Dense adhesions of the appendix to sigmoid colon, cecum, and small bowel Appendix essentially frozen within the central pelvis secondary to dense adhesions Operative note:: After informed consent was obtained the patient was taken to the operating room and placed in the supine position. General anesthesia was induced and her abdomen was prepped and draped in a sterile fashion. After infiltration local anesthetic an infraumbilical incision was made. A Veress needle was placed in position. The abdomen was insufflated. Under direct visualization a 5 mm trocar was placed in the suprapubic position and an additional 5 mm trocar was placed in the left lower quadrant. Cloudy fluid was noted within the right lower quadrant and central pelvis. The appendix was severely inflamed with dense adhesions to a loop of sigmoid colon and to the adjacent cecum and small bowel. The appendix was essentially frozen within the central pelvis and elevation was exceptionally difficult. No obvious injury to the ureter, colon, or small bowel was noted. The appendix and mesoappendix formed large inflammatory phlegmonous mass with necrosis and obvious perforation. The appendiceal base did appear viable. A window was made at the appendiceal base and the [place] Flex stapling device was utilized to transect the appendix at its base. The remaining mesoappendix and necrotic tissue was transected with harmonic alethea. The appendix was placed in a retrieval bag and removed through the infraumbilical trocar site. Skin margin extended laterally secondary to size of appendix. Copious irrigation of the right lower quadrant and pelvis was completed. No sign of injury or bleeding noted. Pneumoperitoneum was released as the trocars were removed. Fascia at the infraumbilical trocar site was reapproximated with 0 Ethibond. All wounds were irrigated and skin was reapproximated with interrupted 4-0 Monocryl (mattress suture to decrease sanguinous ooze). Dressings were applied and the patient was transferred to recovery in stable condition. Condition: stable Disposition: PACU Specimens:: Appendix Complications:: No immediate
[2021-03-27] VITALS (23 sets, daily range): BP systolic 96–116; BP diastolic 45–70; PULSE 62–85; RESP 12–20; TEMP 36.8–37.3; O2SAT 93–98; BMI 25.7; BMI 25.6
--- NOTE | 2021-03-27 00:13 | HMH.ANESI ---
[facility] Anesthesia Record Part I Intake, IV Amount: 1,500 Estimated blood loss (mL): 0 Urine output (mL): 250 Blood Pressure: 96/45 SaO2: 94 Pulse Rate: 85 Respiratory Rate: 12 Temperature: 98.5 F Patient is:: Awake, Stable Stable to PACU at:: 00:10
--- NOTE | 2021-03-27 00:53 | PC.NURSE ---
0039-detailed report called to BERTIN Pruett 0042-pt transported to OB room 275 overflow via hospital bed w/cherrie rails up and left in care of BERTIN Pruett with bed locked in lowest position, vss, pt stable
[2021-03-27 01:04] LABS: Microscopic,Cath URINE MICROSCOPIC (MICROSCOPIC)
[2021-03-27 01:11] LABS: Appearance,Urine/Cath CLEAR (Clear); Bilirubin,Cath Negative (Negative); Blood, Urine/Cath 1+ (Negative); Color,Urine/Cath YELLOW (Yellow); Glucose,Urine/Cath (UA) Negative (Negative); Ketones,Urine/Cath 1+ (Negative); Leukocyte Esterase,Cath Negative (Negative); Nitrate,Cath Negative (Negative); Protein,Urine/Cath Negative (Negative); Urobilinogen,Cath 0.2 EU/dl (0.2)
[2021-03-27 01:36] LABS: Bacteria,Urine/Cath TRACE /lpf; WBC,Urine/Cath Occasional #/hpf (0-3)
--- NOTE | 2021-03-27 05:50 | PC.NURSE ---
attempted to leave oxygen off but with pt getting up to bathroom and returning her sat level on room air was 90%,reapplied oxygen per nc at 2 liters
--- NOTE | 2021-03-27 07:25 | P.PN_ITS ---
Subjective Patient reports: no new complaints, feels better, pain is less Progress Note: A&P (1) Perforated appendicitis Status: Acute Assessment and plan: Overall, doing fairly well status post laparoscopic appendectomy for complicated necrotic/perforated appendicitis. Follow-up morning labs Increase ambulation Very slow advancement of diet as she tolerates Continue IV antibiotics Exam Vital signs and Labs for Last 24 Hours: Temp Pulse Resp BP Pulse Ox 98.3 F 71 17 116/63 98 03/27/21 04:50 03/27/21 04:50 03/27/21 04:50 03/27/21 04:50 03/27/21 05:40 Laboratory Results - last 24 hr 03/26/21 19:50: Amylase 53, Lipase 115 03/26/21 20:00: Urine Color Yellow, Urine Appearance Clear, Urine pH 5.5, Ur Specific [place] 1.015, Urine Protein Negative, Urine Glucose (UA) Negative, Urine Ketones Negative, Urine Blood 2+, Urine Nitrate Negative, Urine Bilirubin Negative, Urine Urobilinogen 0.2, Ur Leukocyte Esterase Negative, Urine RBC 3-5, Urine WBC 3-5, Ur Squamous Epith Cells Occasional, Urine Bacteria 1+ 03/26/21 20:00: WBC 10.3, RBC 4.24, Hgb 12.9, Hct 39.6, MCV 93.5, MCH 30.4, MCHC 32.5, RDW 13.3, Plt Count 204, MPV 8.2, Neut % (Auto) 77.3, Lymph % (Auto) 13.8, [place] % (Auto) 6.0, Eos % (Auto) 2.0, Baso % (Auto) 0.9, Neut # (Auto) 8.0 H, Lymph # (Auto) 1.4, [place] # (Auto) 0.6, Eos # (Auto) 0.2, Baso # (Auto) 0.1, ESR 93 H 03/26/21 20:00: Sodium 136, Potassium 3.7, Chloride 103, Carbon Dioxide 27, Anion Gap 9.7, BUN 11, Creatinine 0.60, Estimated Creat Clear 111, Estimated GFR 103, Est GFR ( Amer) 125, Glucose 115 H, Calcium 9.3, Total Bilirubin 0.6, AST 36, ALT 23, Alkaline Phosphatase 91, C-Reactive Protein 166.7 H, Total Protein 7.6, Albumin 4.5, Globulin 3.1, Albumin/Globulin Ratio 1.5, Procalcitonin 0.071 03/26/21 21:35: SARS-CoV-2 (PCR) Detected A, Influenza A Untype (PCR) Not detected, Influenza Type B (PCR) Not detected 03/26/21 22:40: Urine Color Yellow, Urine Appearance Clear, Urine pH 5.0, Ur Specific [place] 1.010, Urine Protein Negative, Urine Glucose (UA) Negative, Urine Ketones 1+, Urine Blood 1+, Urine Nitrate Negative, Urine Bilirubin Negative, Urine Urobilinogen 0.2, Ur Leukocyte Esterase Negative, Urine RBC 3-5, Urine WBC Occasional, Urine Bacteria Trace I & O for Last 24 hours: Intake & Output 03/24/21 03/25/21 03/26/21 03/27/21 11:59 11:59 11:59 11:59 Intake Total 1500 / 1500 Balance 1500 / 1500 Weight 150 lb - Constitutional no acute distress - *Routine Respiratory Exam Absent: respiratory distress - *Routine Cardiovascular Exam Absent: tachycardia - *Routine Abdominal Exam Comments: Dressings intact. No spreading cellulitis.
--- NOTE | 2021-03-27 07:38 | PC.NURSE ---
REPORT GIVEN TO CLEOPATRARN
--- NOTE | 2021-03-27 08:18 | PC.NURSE ---
OXYGEN TURNED DOWN TO 1LITER- WILL REASSESS OXYGEN SATS
[2021-03-27 08:20] LABS: Chloride 105 mmol/L (98-107); Sodium 135 mmol/L (136-145)
[2021-03-27 08:23] LABS: Blood Urea Nitrogen 6 mg/dl (7-17); Calcium 7.7 mg/dl (8.4-10.2); Carbon Dioxide 26 mmol/L (22.0-30.0); Creatinine Clearance Estimated 111 mL/min (50-200); Estimated Glomerular Filt Rate 103 ml/min (>60); GFR (African American) 125 ML/MIN (>60); Glucose 160 mg/dl (74-100)
[2021-03-27 08:24] LABS: Lymphocytes # 0.5 K/mm3 (0.7-4.5); Mean Corpuscular Hemoglobin 30.1 pg (27.0-31.2)
--- NOTE | 2021-03-27 08:24 | PC.NURSE ---
DR. FULLER AT BEDSIDE. REPORT WAS GIVEN.
[2021-03-27 09:18] LABS: Basophils % 0.2 % (0.1-2.0); Hematocrit 34.6 % (37.0-47.0); Lymphocytes % 6.1 % (10-50); Mean Corpuscular HGB Conc 31.3 g/dL (31.8-35.4); Mean Corpuscular Volume 96.1 fl (81-99); Mean Platelet Volume 8.2 fl (7.4-10.4); Monocytes # 0.3 K/mm3 (0.1-1.0); Monocytes % 3.9 % (1.7-9.3); Neutrophils # 7.2 K/mm3 (1.8-7.8); Neutrophils % 89.8 % (37.0-80.0); Platelet Count 189 K/mm3 (142-424); Red Cell Distribution Width 13.4 % (11.5-17.5)
[2021-03-27 09:23] LABS: Hemoglobin 10.9 g/dL (12.2-16.2)
[2021-03-27 09:25] LABS: MANUAL DIFFERENTIAL MANUAL DIFFERENTIAL (MANUAL DIFF)
--- NOTE | 2021-03-27 10:21 | PC.NURSE ---
pt up walking halls with . doing very well.
--- NOTE | 2021-03-27 10:26 | PC.NURSE ---
patient back in bed- 93-94% on room air. no soa noted or reported. no current needs. pt will walk again later.
--- NOTE | 2021-03-27 10:48 | P.PN_ITS ---
[facility] Anesthesia Record Part II Discharge Time: 00:40 Destination: Second Floor PACU nurse assessment reviewed?: Yes Patient Condition:: Good Anesthesia Complications:: None Swallowing reflex intact?: Yes Cyanosis?: No Blood Pressure: 102/58 Pulse Rate: 84 Temperature: 98.9 F Mental Status: Alert & Oriented Pain level:: 0 Nausea and/or vomitting:: None Intake, IV Amount: 0
--- NOTE | 2021-03-27 10:52 | P.CONPHA_ITS ---
[facility] Pharmacy VTE Monitoring - Patient Demographics Admission date: 03/26/21 Report Date: 03/27/21 Time: 10:52 Allergies/Adverse Reactions: Patient Allergies sulfamethoxazole [From Bactrim] Allergy (Intermediate, Verified 03/16/21 15:07) Rash trimethoprim [From Bactrim] Allergy (Intermediate, Verified 03/16/21 15:07) Rash Height: 1.63 m Weight: 68.039 kg Patient Problems: Current Active Problems Acute appendicitis (Acute) Perforated appendicitis (Acute) - VTE Risk Labs: VTE Related Lab Results Hgb 10.9 g/dL (12.2-16.2) L D 03/27/21 08:00 Hct 34.6 % (37.0-47.0) L 03/27/21 08:00 Plt Count 189 K/mm3 (142-424) 03/27/21 08:00 BUN 6 mg/dl (7-17) L D 03/27/21 08:00 Creatinine 0.60 mg/dl (0.52-1.04) 03/27/21 08:00 Estimated Creat Clear 111 mL/min (50-200) 03/27/21 08:00 VTE Score: 1 - Prophylaxis VTE Prophylaxis Ordered?: Yes Types of VTE Prophylaxis: IPCS Thigh High Location of Applied Device: Bilateral Lower Extremeties
--- NOTE | 2021-03-27 10:52 | HMH.PHAINT ---
MEDICATION RECONCILIATION COMPLETED ON PATIENT USING EXTERNAL FILL HISTORY FROM PHARMACY. -ASHLEY MAE, IVETD
[2021-03-27 12:47] LABS: Lymphocytes % 3 % (10-50); Monocytes % 3 % (2-9); Neutrophils % 94 % (42-76); Platelet Estimate Normal; Total Cells Counted 100
--- NOTE | 2021-03-27 13:32 | PC.NURSE ---
patient up walking halls with daughter. doing very well. no needs
--- NOTE | 2021-03-27 16:40 | PC.NURSE ---
reassessment completed at this time. no changes noted. patient lungs cta and bowel sounds now active. 3 lap sites c/d/i. pulses 2+ no edema. pt ambulating well. using incentive spirometer. oxygen saturations anywhere from 93-95% on room air. pt denies soa, trouble breathing. tolerating full liquids well. has been medicated with pain meds prn twice on my shift. no current needs. call light within reach
--- NOTE | 2021-03-27 16:51 | PC.NURSE ---
patient up walking in halls with . doing well with ambulation.
--- NOTE | 2021-03-27 20:10 | PC.NURSE ---
PT ASSESSMENT DONE.PT REPORTS JUST BEING SORE,NO PAIN WITH JUST SITTING IN BED,REPORTS SHE WOULD LIKE HER PAIN PILL WHEN SHE CAN HAVE IT AGAIN,TOLD HER IT WOULD BE AROUND 2230 AND SHE SAID THAT WAS ALRIGHT,ASSISTED PT WITH REMOVING SCUDS AND ASSISTED WITH IV POLE TO BR.WITH RETURNING TO BED HAD PT USE HER INCENTIVE SPIROMETER AND SHE WAS ABLE TO ACHIEVE 1250ML,LUNGS CLEAR WITH A NON PRODUCTIVE COUGH,SAT.LEVEL 94% ON ROOM AIR
[2021-03-28] VITALS (7 sets, daily range): BP systolic 101–141; BP diastolic 61–75; PULSE 63–75; RESP 16–20; TEMP 36.8–37.5; O2SAT 91–97; BMI 25.6
--- NOTE | 2021-03-28 00:46 | PC.NURSE ---
GENE HUNG AT THIS TIME.IV INFUSING WITHOUT DIFF.NS AT 75ML,NO NEEDS OR CONCERNS VOICED
--- NOTE | 2021-03-28 05:25 | PC.NURSE ---
PT HAS SLEPT SOME TONIGHT,LUNGS CLEAR THROUGHOUT,RESP.EVEN AND UNLABORED WITH PRODUCTIVE COUGH,SAT LEVEL THIS MORNING WITH WAKING WAS 85%,HAD PT TAKE SOME DEEP BREATHES AND IT GENNARO TO 91%,PT USING HER INCENTIVE SPIROMETER.NO DRAINAGE TO THE 3 LAP SITES,BOWEL SOUNDS NORMAL,REPORTS PASSING GAS,VOIDING WITHOUT DIFF.PT HAS BEEN MEDICATE 2X TONIGHT,IV SITE INFUSING WITHOUT DIFF-NS AT 75ML.NO OTHER NEEDS OR CONCERNS VOICED
[2021-03-28 05:57] LABS: Basophils % 0.4 % (0.1-2.0); Eosinophils # 0.1 K/mm3 (0.0-0.4); Eosinophils % 0.8 % (0.1-12.0); Hematocrit 30.6 % (37.0-47.0); Hemoglobin 9.9 g/dL (12.2-16.2); Lymphocytes # 1.3 K/mm3 (0.7-4.5); Lymphocytes % 21.4 % (10-50); Mean Corpuscular HGB Conc 32.3 g/dL (31.8-35.4); Mean Corpuscular Volume 95.8 fl (81-99); Mean Platelet Volume 8.3 fl (7.4-10.4); Monocytes # 0.4 K/mm3 (0.1-1.0); Monocytes % 5.9 % (1.7-9.3); Neutrophils # 4.4 K/mm3 (1.8-7.8); Neutrophils % 71.5 % (37.0-80.0); Platelet Count 165 K/mm3 (142-424); Red Blood Count 3.19 M/mm3 (4.20-5.40); Red Cell Distribution Width 13.5 % (11.5-17.5); White Blood Count 6.1 K/mm3 (4.8-10.8)
[2021-03-28 06:04] LABS: Chloride 105 mmol/L (98-107); Sodium 135 mmol/L (136-145)
[2021-03-28 06:05] LABS: Potassium 3.3 mmoL/L (3.5-5.1)
[2021-03-28 06:07] LABS: Blood Urea Nitrogen 7 mg/dl (7-17); Creatinine Clearance Estimated 95 mL/min (50-200); Estimated Glomerular Filt Rate 86 ml/min (>60); GFR (African American) 104 ML/MIN (>60)
[2021-03-28 06:08] LABS: Anion Gap 7.3 mEq/L (5-15); Calcium 7.9 mg/dl (8.4-10.2); Carbon Dioxide 26 mmol/L (22.0-30.0); Glucose 97 mg/dl (74-100)
--- NOTE | 2021-03-28 10:09 | P.PN_ITS ---
Subjective Narrative: Patient does state that she feels better than she did preoperatively but still does not feel very well. She does have some abdominal pain. Poor appetite. No nausea. She is passing gas. Taking limited amounts of full liquids. Progress Note: A&P (1) Perforated appendicitis Status: Acute Assessment and Plan for All Diagnoses:: Continue current care as inpatient at this time Exam Vital signs and Labs for Last 24 Hours: Temp Pulse Resp BP Pulse Ox 98.3 F 71 18 101/61 L 95 03/28/21 08:00 03/28/21 08:00 03/28/21 08:00 03/28/21 08:00 03/28/21 08:20 Laboratory Results - last 24 hr 03/27/21 08:00: Total Counted 100, Neutrophils % (Manual) 94 H, Lymphocytes % (Manual) 3 L, Monocytes % (Manual) 3, Platelet Estimate Normal 03/28/21 05:39: WBC 6.1, RBC 3.19 L, Hgb 9.9 L, Hct 30.6 L, MCV 95.8, MCH 31.0, MCHC 32.3, RDW 13.5, Plt Count 165, MPV 8.3, Neut % (Auto) 71.5, Lymph % (Auto) 21.4, [place] % (Auto) 5.9, Eos % (Auto) 0.8, Baso % (Auto) 0.4, Neut # (Auto) 4.4, Lymph # (Auto) 1.3, [place] # (Auto) 0.4, Eos # (Auto) 0.1, Baso # (Auto) 0.0 03/28/21 05:39: Sodium 135 L, Potassium 3.3 L, Chloride 105, Carbon Dioxide 26, Anion Gap 7.3, BUN 7, Creatinine 0.70, Estimated Creat Clear 95, Estimated GFR 86, Est GFR ( Amer) 104, Glucose 97 D, Calcium 7.9 L I & O for Last 24 hours: Intake & Output 03/25/21 03/26/21 03/27/21 03/28/21 11:59 11:59 11:59 11:59 Intake Total 1500 / 1500 1340 / 1340 Balance 1500 / 1500 1340 / 1340 Weight 149 lb 14.629 oz - *Routine Abdominal Exam Present: soft Comments: Incision is dressed and dry. Minor erythema inferior to the umbilical incision.
--- NOTE | 2021-03-28 15:25 | PC.NURSE ---
Routine reassessment completed. Pt. reports passing gas and having small bowel movement. Pt. reports pain at 2/10 and refuses medication at this time. Right arm noted to have non pitting edema in hand and forearm. No further acute changes noted from previous assessment. Lungs remain diminished in the bases. Dressings x3 remain C/D/I. Small amount of erythema noted below umbilicus, but is not warm to the touch. Pt. tolerated assessment well and denies needs, will continue to monitor.
--- NOTE | 2021-03-28 21:15 | PC.NURSE ---
PT IV HAD INFILTRATED,RESTARTED ANOTHER ONE IN THE LEFT WRIST,PT TOLERATED WELL WITH 2 ATTEMPTS,RAC IV DISCONTINUED AND AN ICE PACK AND PILLOW FOR ELEVATION FOR SWELLING APPLIED TO UPPER ARM AND ELBOW.PT REPORTS THE NORCO HAS HELPED THE HEADACHE AND ABD.PAIN,A 3 ON SCALE OF 0-10,NO OTHER NEEDS OR CONCERNS VOICED
--- NOTE | 2021-03-28 23:17 | PC.NURSE ---
PT RIGHT ARM LOOKS A LITTLE BETTER,PT HAD REMOVED THE ICE AND IT WAS STILL ELEVATED,NO NEEDS OR CONCERNS VOICED
[2021-03-29 04:00] VITALS: BP 131/69; PULSE 65; RESP 17; TEMP 37.6; O2SAT 96
--- NOTE | 2021-03-29 04:16 | PC.NURSE ---
NO ACUTE CHANGES FROM PREVIOUS ASSESSMENT.LUNGS DIMINISHED IN LOWER BASES,SAT LEVEL 96% THIS MORNING AFTER TAKING SOME DEEP BREATHES,WAS 92% ON ROOM AIR,BOWEL SOUNDS NORMAL,NO DRAINAGE TO THE 3 LAP SITES,SWELLING IN THE RIGHT UPPER ARM FROM PREVIOUS IV HAS GONE DOWN SOME.IV IN LEFT WRIST INFUSING WITH NS AT 75ML PT REPORTS SHE HAS BEEN UP ONCE DURING THE NIGHT TO THE BATHROOM AND IS FIXING TO GO AGAIN,DENIES ANY PAIN AT THIS TIME
--- NOTE | 2021-03-29 06:10 | PC.NURSE ---
LAB HERE TO DRAW CBC
[2021-03-29 06:28] LABS: Basophils % 0.3 % (0.1-2.0); Eosinophils # 0.2 K/mm3 (0.0-0.4); Eosinophils % 3.7 % (0.1-12.0); Hematocrit 31.8 % (37.0-47.0); Hemoglobin 10.2 g/dL (12.2-16.2); Lymphocytes # 1.2 K/mm3 (0.7-4.5); Lymphocytes % 20.1 % (10-50); Mean Corpuscular HGB Conc 32.2 g/dL (31.8-35.4); Mean Corpuscular Hemoglobin 30.5 pg (27.0-31.2); Mean Corpuscular Volume 94.9 fl (81-99); Monocytes # 0.3 K/mm3 (0.1-1.0); Monocytes % 5.4 % (1.7-9.3); Neutrophils % 70.4 % (37.0-80.0); Platelet Count 190 K/mm3 (142-424); Red Blood Count 3.36 M/mm3 (4.20-5.40); Red Cell Distribution Width 13.2 % (11.5-17.5); White Blood Count 5.7 K/mm3 (4.8-10.8)
[2021-03-29 08:00] VITALS: BP 140/71; PULSE 69; RESP 20; TEMP 37.1; O2SAT 97
--- NOTE | 2021-03-29 09:41 | P.PN_ITS ---
Subjective Narrative: Patient is feeling better. Her appetite is somewhat improved. She is tolerating full liquids. She has had some bowel movements. She wishes to go home. Progress Note: A&P (1) Perforated appendicitis Status: Acute Assessment and Plan for All Diagnoses:: Discharge home Exam Vital signs and Labs for Last 24 Hours: Temp Pulse Resp BP Pulse Ox 98.8 F 69 20 140/71 97 03/29/21 08:00 03/29/21 08:00 03/29/21 08:00 03/29/21 08:00 03/29/21 08:00 Laboratory Results - last 24 hr 03/29/21 06:14: WBC 5.7, RBC 3.36 L, Hgb 10.2 L, Hct 31.8 L, MCV 94.9, MCH 30.5, MCHC 32.2, RDW 13.2, Plt Count 190, MPV 8.0, Neut % (Auto) 70.4, Lymph % (Auto) 20.1, [place] % (Auto) 5.4, Eos % (Auto) 3.7, Baso % (Auto) 0.3, Neut # (Auto) 4.0, Lymph # (Auto) 1.2, [place] # (Auto) 0.3, Eos # (Auto) 0.2, Baso # (Auto) 0.0 I & O for Last 24 hours: Intake & Output 03/26/21 03/27/21 03/28/21 03/29/21 11:59 11:59 11:59 11:59 Intake Total 1500 / 1500 1340 / 1340 2560 / 2560 Balance 1500 / 1500 1340 / 1340 2560 / 2560 Weight 149 lb 14.629 oz 149 lb 14.629 oz - *Routine Abdominal Exam Present: soft
--- NOTE | 2021-03-29 10:45 | PC.NURSE ---
Discharge education provided. Questions encouraged and answered. Pt. v/u. IV removed from LFA. Pt. tolerated well. 2x2 [address] Nurse educated pt. on removing after 20 minutes and holding pressure if bleeding occurs at site. Pt. v/u.
--- NOTE | 2021-03-29 10:58 | PC.NURSE ---
Pt. left to unit ambulatory per pt. request. Pt. accompanied by staff x1 and spouse.
--- NOTE | 2021-03-29 12:36 | HMH.DCSUM ---
General - General Admission date:: 03/27/21 Discharge date: 03/29/21 HPI HPI: This is a 56-year-old female who presented to the emergency department with increasing abdominal pain. Radiographic evidence was consistent with perforated appendicitis with small abscess. The surgical service was consulted for evaluation management/admission. Please see HPI forwarded from emergency department evaluation below. Forwarded for emergency department evaluation: Nausea/Vomiting/Diarrhea HPI - General Chief complaint: Abdominal Pain Stated complaint: severe abd pain Time Seen by Provider: 03/26/21 20:00 Mode of Arrival: Ambulatory Source of Information: Patient, Medical Record Limitations: No Limitations Description of Symptoms (Recalled from ER Triage Doc. by RN): PT REPORTS BEING POSITIVE FOR COVID IN FEB. PT REPORTS LOW ABDOMINAL PAIN TODAY AND THAT SHE HAS BEEN TAKING LARGE AMOUNTS OF MOTRIN AT HOME. PT REPORTS PAIN 4/10 AT THIS TIME. DESCRIBES SHARP THAT BEGAN ON TUESDAY. - History of Present Illness HPI Narrative: pt with progressive lower abd pain with nausea - MD complaint: nausea, abdominal pain Onset (ago): day(s) Associated Abdominal Pain: Yes Location of pain: RLQ Severity: moderate Consistency: constant Associated symptoms: denies other symptoms Hospital Course Hospital Course: The patient underwent laparoscopic appendectomy. Please see operative report for detail. Postoperatively, she convalesced well. She remained afebrile with stable and normal vital signs. She was maintained on Zosyn throughout her hospitalization secondary to the perforated nature of her appendicitis. On the morning of discharge she was afebrile with stable and normal vital signs. She was tolerating advancement of her diet and deemed appropriate for discharge. Objective Vital signs: Temp Pulse Resp BP Pulse Ox 98.8 F 69 20 140/71 97 03/29/21 08:00 03/29/21 08:00 03/29/21 08:00 03/29/21 08:00 03/29/21 08:00 no acute distress - *Routine HEENT Exam Head: Present: normocephalic Eye: Present: EOMI ENT: Present: mucous membranes moist - *Routine Neck Exam Present: full ROM - Routine Chest/Breast/Axilla Exam Chest wall: Absent: tenderness - *Routine Respiratory Exam Absent: respiratory distress - *Routine Cardiovascular Exam Present: RRR - *Routine Abdominal Exam Present: soft, tenderness - *Routine Rectal Exam Patient deferred: visual exam - *Routine Exam Patient deferred: external exam - *Routine Extremities Exam Present: full ROM - Routine Back/Spine/Pelvis Exam Back/Spine: Present: full ROM - *Routine Skin Exam Absent: erythema - *Routine Neurological Exam Present: alert - Routine Psychiatric Exam Present: normal affect DS: Diagnosis - Discharge Diagnosis (1) Perforated appendicitis Status: Acute Discharge Plan - Patient Discharge Instructions ACTIVITY: No heavy lifting DIET: advance to your usual diet Patient Instructions: How to Care for a Surgical Wound, Peritonitis, Appendicitis, DI for Peritonitis - Follow up Plan Follow up with: Judi Alvarez APRN [Primary Care Provider] - (Call the office on tuesday to setup an appointment for 1 week ) Enzo Minaya MD [Staff Physician] - 04/08/21 (Call on tuesday to setup an appointment for 04/08/2021) Disposition: Home, Self-Care Condition at discharge:: Improved Home Medications: Home Medications Medication Instructions Recorded Confirmed Type albuterol sulfate 90 mcg/actuation 2 puff IH Q6HP PRN 10/13/18 03/27/21 History aerosol inhaler Montelukast Sodium [Singulair] 10 mg PO PM 03/26/21 03/27/21 History Omeprazole 20 mg PO BID 03/26/21 03/26/21 History Sertraline HCl [Zoloft] 150 mg PO DAILY 03/26/21 03/27/21 History Simvastatin 40 mg PO HS 03/26/21 03/27/21 History Meloxicam [Mobic 7.5mg Tab] 7.5 mg PO DAILY 03/27/21 03/27/21 History Amoxicillin/Potassium Clav 1 tab PO Q12H 7 Days #14
== END 2021-03-29 10:58 | disposition home or self-care (01) | DRG 338 ==
LOC: ER 21:38 → SDC 22:20 → OB 03-27 00:43
PROVIDERS: Admitting Provider Surgery; Emergency Provider Emergency Medicine; PCP Nurse Practitioner Family; Visit Provider Surgery
PROC: 0DTJ4ZZ Resection of Appendix, Percutaneous Endoscopic Approach (ICD-10-PCS; CPT 44970; principal; 2021-03-26 22:00)
DX: K35.32 Acute appendicitis with perforation, localized peritonitis, and gangrene, without abscess (principal); U07.1 COVID-19; E11.9 Type 2 diabetes mellitus without complications; Z79.899 Other long term (current) drug therapy
CPT/HCPCS: 44970; 74177; 80048; 80053; 81001; 82150; 83690; 84145; 85007; 85025; 85651; 86140; 96365; 96366; 96375; 99283; C9803; J0696; J2405; J2543; J2710; Q9967; U0003; U0005

== ENCOUNTER → 2021-06-22 16:15 | Outpatient (CLI) | payer BC, SELFPAY ==
--- NOTE | 2021-06-22 16:20 | XR_ITS ---
PROCEDURE INFORMATION: Exam: XR Right Hand Exam date and time: 06/22/2021 4:32 PM Age: 56 years old Clinical indication: Pain; Finger(s) and other: Thumb; Right; Additional info: Pain base of thumb TECHNIQUE: Imaging protocol: XR Right hand. Views: 3 or more views. COMPARISON: No relevant prior studies available. FINDINGS: Bones/joints: Moderate osteoarthritis of the 1st carpometacarpal joint, as manifested by moderately decreased joint space, moderate osteophyte formation, and subchondral sclerosis. There is no evidence of acutely displaced fractures. There is no evidence of joint dislocation. No aggressive osseous lesions. Soft tissues: There is no significant soft tissue swelling. IMPRESSION: 1. Moderate osteoarthritis at the 1st carpometacarpal joint. 2. No acute skeletal pathology.
== END ==
PROVIDERS: PCP Nurse Practitioner Family; Visit Provider Nurse Practitioner Family
DX: M79.641 Pain in right hand (principal)
CPT/HCPCS: 73130

== ENCOUNTER 2021-08-18 10:24 | Outpatient (RCR) | payer BC, SELFPAY | END 2021-08-18 11:30 | disposition home or self-care (01) | LOC: OT 10:24 | PROVIDERS: Visit Provider Orthopaedic Surgery | DX: M79.641 Pain in right hand (principal); M18.11 Unilateral primary osteoarthritis of first carpometacarpal joint, right hand | CPT/HCPCS: 97763 ==

== ENCOUNTER → 2021-11-25 09:10 | Outpatient (CLI) | payer BC, SELFPAY ==
[2021-11-25 18:35] LABS: Alanine Aminotransferase 25 U/L (12-78); Albumin Level 4.3 g/dl (3.5-5.0); Albumin/Globulin Ratio 1.6 (1.1-1.8); Alkaline Phosphatase 91 U/L (38-126); Anion Gap 16.3 mEq/L (5-15); Aspartate Amino Transferase 33 U/L (14-36); Bilirubin,Total 0.5 mg/dl (0.2-1.3); Blood Urea Nitrogen 14 mg/dl (7-17); Calcium 9.1 mg/dl (8.4-10.2); Carbon Dioxide 25 mmol/L (22.0-30.0); Chloride 102 mmol/L (98-107); Chol/HDL Ratio 2.7 (1-3.5); Cholesterol 233 mg/dl (140-200); Estimated Glomerular Filt Rate 103 ml/min (>60); GFR (African American) 125 ML/MIN (>60); Globulin 2.7 g/dL (1.3-3.2); Glucose 105 mg/dl (74-100); HDL Cholesterol 85 mg/dl (40-60); Potassium 4.3 mmoL/L (3.5-5.1); Sodium 139 mmol/L (136-145); Triglycerides 89 mg/dl (30-150); VLDL Cholesterol 18 mg/dL (0-40)
[2021-11-25 18:40] LABS: Basophils # 0.1 K/mm3 (0-0.2); Eosinophils # 0.4 K/mm3 (0.0-0.4); Eosinophils % 7.9 % (0.1-12.0); Hematocrit 43.1 % (37.0-47.0); Hemoglobin 13.7 g/dL (12.2-16.2); Lymphocytes # 1.1 K/mm3 (0.7-4.5); Lymphocytes % 22.3 % (10-50); Mean Corpuscular HGB Conc 31.8 g/dL (31.8-35.4); Mean Corpuscular Hemoglobin 29.4 pg (27.0-31.2); Mean Corpuscular Volume 92.3 fl (81-99); Mean Platelet Volume 8.9 fl (7.4-10.4); Monocytes # 0.4 K/mm3 (0.1-1.0); Monocytes % 8.2 % (1.7-9.3); Neutrophils # 2.9 K/mm3 (1.8-7.8); Neutrophils % 59.6 % (37.0-80.0); Platelet Count 235 K/mm3 (142-424); Red Blood Count 4.67 M/mm3 (4.20-5.40); Red Cell Distribution Width 13.6 % (11.5-17.5); White Blood Count 4.8 K/mm3 (4.8-10.8)
[2021-11-25 18:53] LABS: 25-OH Vitamin D, Total 30.9 ng/mL (30-100); Direct LDL Cholesterol 112.47 mg/dL (100-129)
[2021-11-25 19:06] LABS: Thyroid Stimulating Hormone 1.82 uIU/mL (0.465-4.68)
[2021-11-25 19:20] LABS: Hemoglobin A1C 5.7 % (4.0-6.0)
== END ==
PROVIDERS: PCP Nurse Practitioner Family; Visit Provider Nurse Practitioner Family
DX: I10 Essential (primary) hypertension (principal); R53.83 Other fatigue; E78.9 Disorder of lipoprotein metabolism, unspecified
CPT/HCPCS: 80053; 80061; 82306; 83036; 84443; 85025

== ENCOUNTER → 2022-02-24 16:41 | Outpatient (CLI) | payer BC, SELFPAY ==
--- NOTE | 2022-02-24 16:41 | MM_ITS ---
PROCEDURE INFORMATION: Exam: MG Bilateral Screening 3D Mammography Exam date and time: 02/24/2022 4:37 PM Age: 56 years old Clinical indication: Screening examination TECHNIQUE: Imaging protocol: Bilateral Screening tomosynthesis and 2D mammography including computer-aided detection (CAD) when performed. COMPARISON: 1. MG MM DIG SCREENING MAMM BI W/CAD 02/03/2021 12:57 PM 2. MG MM DIG SCREENING MAMM BI W/CAD 01/21/2020 4:03 PM FINDINGS: MAMMOGRAPHY: Breast composition: There are scattered areas of fibroglandular density. Mass: None. Architectural distortion: None. Calcifications: No suspicious calcifications. Asymmetric density: None. Skin thickening: None. Axillary adenopathy: None. IMPRESSION: No mammographic evidence of malignancy. Annual screening is recommended unless otherwise clinically indicated. ASSESSMENT: BI-RADS Category 1: Negative
== END ==
PROVIDERS: PCP Nurse Practitioner Family; Visit Provider Nurse Practitioner Family
DX: Z12.31 Encounter for screening mammogram for malignant neoplasm of breast (principal)
CPT/HCPCS: 77063; 77067

== ENCOUNTER → 2023-01-14 08:47 | Outpatient (CLI) | payer BC, SELFPAY ==
[2023-01-14 18:10] LABS: Coronavirus 19, PCR Not Detected (NotDetected); Influenza A, PCR Not Detected (NotDetected); Influenza B, PCR Not Detected (NotDetected)
== END ==
PROVIDERS: Visit Provider Family Medicine
DX: J06.9 Acute upper respiratory infection, unspecified (principal); R05.9 Cough, unspecified; R09.81 Nasal congestion
CPT/HCPCS: 87636

== ENCOUNTER → 2023-01-14 15:51 | Outpatient (CLI) | payer BC, SELFPAY ==
--- NOTE | 2023-01-14 15:55 | XR_ITS ---
FINAL REPORT CLINICAL HISTORY: cough COMPARISON: 04/05/2020 FINDINGS: 2 views of the chest were obtained . The heart is normal in size. The mediastinum is within normal limits. The lungs are clear. There is no pneumothorax. Osseous structures are unremarkable. IMPRESSION: No acute cardiopulmonary process. Reviewed, Interpreted and Dictated by Malinda Schneider MD Transcribed by Ivonne Turner Authenticated and [facility]
== END ==
PROVIDERS: PCP Internal Medicine; Visit Provider Family Medicine
DX: R05.9 Cough, unspecified (principal)
CPT/HCPCS: 71046

== ENCOUNTER → 2023-01-15 08:16 | Outpatient (CLI) | payer BC, SELFPAY ==
[2023-01-15 08:44] LABS: Basophils % 0.5 % (0.1-2.0); Eosinophils # 0.2 K/mm3 (0.0-0.4); Eosinophils % 3.7 % (0.1-12.0); Hematocrit 42.6 % (37.0-47.0); Hemoglobin 14.2 g/dL (12.2-16.2); Lymphocytes # 1.6 K/mm3 (0.7-4.5); Lymphocytes % 24.3 % (10-50); Mean Corpuscular HGB Conc 33.4 g/dL (31.8-35.4); Mean Corpuscular Hemoglobin 30.1 pg (27.0-31.2); Mean Corpuscular Volume 90.1 fl (81-99); Mean Platelet Volume 7.9 fl (7.4-10.4); Monocytes # 0.4 K/mm3 (0.1-1.0); Monocytes % 5.5 % (1.7-9.3); Neutrophils # 4.3 K/mm3 (1.8-7.8); Platelet Count 247 K/mm3 (142-424); Red Blood Count 4.72 M/mm3 (4.20-5.40); Red Cell Distribution Width 13.3 % (11.5-17.5); White Blood Count 6.4 K/mm3 (4.8-10.8)
[2023-01-15 09:03] LABS: Chloride 103 mmol/L (98-107); Sodium 139 mmol/L (136-145)
[2023-01-15 09:04] LABS: Potassium 4.1 mmoL/L (3.5-5.1)
[2023-01-15 09:06] LABS: Alanine Aminotransferase 33 U/L (12-78); Albumin Level 4.4 g/dl (3.5-5.0); Albumin/Globulin Ratio 1.4 (1.1-1.8); Alkaline Phosphatase 97 U/L (38-126); Anion Gap 12.1 mEq/L (5-15); Aspartate Amino Transferase 36 U/L (14-36); Bilirubin,Total 0.6 mg/dl (0.2-1.3); Blood Urea Nitrogen 10 mg/dl (7-17); Carbon Dioxide 28 mmol/L (22.0-30.0); Cholesterol 244 mg/dl (140-200); Estimated Glomerular Filt Rate 86 ml/min (>60); GFR (African American) 104 ML/MIN (>60); Globulin 3.1 g/dL (1.3-3.2); Total Protein,Serum 7.5 g/dl (6.3-8.2); Triglycerides 169 mg/dl (30-150); VLDL Cholesterol 34 mg/dL (0-40)
[2023-01-15 09:07] LABS: Calcium 9.4 mg/dl (8.4-10.2); Chol/HDL Ratio 3.9 (1-3.5); Glucose 119 mg/dl (74-100); HDL Cholesterol 63 mg/dl (40-60)
[2023-01-15 09:39] LABS: Direct LDL Cholesterol 123.99 mg/dL (100-129); Thyroid Stimulating Hormone 1.51 uIU/mL (0.465-4.68)
[2023-01-15 10:17] LABS: Hemoglobin A1C 5.8 % (4.0-6.0)
== END ==
PROVIDERS: PCP Internal Medicine; Visit Provider Family Medicine
DX: Z00.00 Encounter for general adult medical examination without abnormal findings (principal); R73.09 Other abnormal glucose; Z79.899 Other long term (current) drug therapy
CPT/HCPCS: 80053; 80061; 83036; 84443; 85025

== ENCOUNTER 2023-03-02 15:46 | Outpatient (CLI) | payer BC, SELFPAY ==
--- NOTE | 2023-03-02 15:48 | MM_ITS ---
PROCEDURE INFORMATION: Exam: MG Bilateral Screening 3D Mammography Exam date and time: 03/02/2023 3:41 PM Age: 57 years old Clinical indication: Screening examination. Her sister had breast cancer. TECHNIQUE: Imaging protocol: Bilateral Screening tomosynthesis and 2D mammography including computer-aided detection (CAD) when performed. COMPARISON: 1. MG MM DIG SCREENING MAMM BI W/CAD 02/24/2022 4:37 PM 2. MG MM DIG SCREENING MAMM BI W/CAD 02/03/2021 12:57 PM 3. MG MM DIG SCREENING MAMM BI W/CAD 01/21/2020 4:03 PM 4. MG MM DIG SCREENING MAMM BI W/CAD 01/12/2019 8:14 AM FINDINGS: MAMMOGRAPHY: Breast composition: There are scattered areas of fibroglandular density. Mass: No suspicious mass. Architectural distortion: None. Calcifications: No suspicious calcifications. Asymmetric density: None. Skin thickening: None. Axillary adenopathy: None. IMPRESSION: No mammographic evidence of malignancy. Annual screening is recommended unless otherwise clinically indicated. ASSESSMENT: BI-RADS Category 1: Negative
== END 2023-03-02 23:59 ==
LOC: RAD 15:48
PROVIDERS: PCP Nurse Practitioner Family; Visit Provider Nurse Practitioner Family
DX: Z12.31 Encounter for screening mammogram for malignant neoplasm of breast (principal)
CPT/HCPCS: 77063; 77067

== ENCOUNTER 2023-12-09 14:51 | Outpatient (CLI) | payer BC, SELFPAY ==
[2023-12-09 18:17] LABS: Basophils # 0.1 K/mm3 (0-0.2); Basophils % 0.9 % (0.1-2.0); Eosinophils # 0.2 K/mm3 (0.0-0.4); Eosinophils % 2.4 % (0.1-12.0); Hematocrit 43.5 % (37.0-47.0); Hemoglobin 14.2 g/dL (12.2-16.2); Lymphocytes # 1.3 K/mm3 (0.7-4.5); Lymphocytes % 19.8 % (10-50); Mean Corpuscular HGB Conc 32.6 g/dL (31.8-35.4); Mean Corpuscular Hemoglobin 29.6 pg (27.0-31.2); Mean Corpuscular Volume 90.8 fl (81-99); Mean Platelet Volume 8.5 fl (7.4-10.4); Monocytes # 0.4 K/mm3 (0.1-1.0); Monocytes % 6.3 % (1.7-9.3); Neutrophils # 4.7 K/mm3 (1.8-7.8); Neutrophils % 70.5 % (37.0-80.0); Platelet Count 247 K/mm3 (142-424); Red Blood Count 4.79 M/mm3 (4.20-5.40); Red Cell Distribution Width 13.6 % (11.5-17.5); White Blood Count 6.7 K/mm3 (4.8-10.8)
[2023-12-09 18:27] LABS: Alanine Aminotransferase 73 U/L (12-78); Albumin Level 4.4 g/dl (3.5-5.0); Albumin/Globulin Ratio 1.6 (1.1-1.8); Alkaline Phosphatase 105 U/L (38-126); Amylase 64 U/L (30-110); Anion Gap 11.5 mEq/L (5-15); Aspartate Amino Transferase 67 U/L (14-36); Bilirubin,Direct 0.3 mg/dl (0.0-0.4); Bilirubin,Indirect 0.5 mg/dL (0.0-0.9); Bilirubin,Total 0.8 mg/dl (0.2-1.3); Bilirubin,Unconjugated 0.5 mg/dL (0.0-1.1); Blood Urea Nitrogen 12 mg/dl (7-17); Calcium 9.3 mg/dl (8.4-10.2); Carbon Dioxide 25 mmol/L (22.0-30.0); Chloride 100 mmol/L (98-107); Chol/HDL Ratio 2.5 (1-3.5); Cholesterol 216 mg/dl (140-200); Estimated Glomerular Filt Rate 102 ml/min (>60); GFR (African American) 124 ML/MIN (>60); Globulin 2.8 g/dL (1.3-3.2); Glucose 104 mg/dl (74-100); HDL Cholesterol 88 mg/dl (40-60); Lipase 143 U/L (23-300); Potassium 4.5 mmoL/L (3.5-5.1); Sodium 132 mmol/L (136-145); Total Protein,Serum 7.2 g/dl (6.3-8.2); Triglycerides 132 mg/dl (30-150); VLDL Cholesterol 26 mg/dL (0-40)
[2023-12-09 18:39] LABS: Direct LDL Cholesterol 107.06 mg/dL (100-129)
== END 2023-12-09 23:59 | disposition home or self-care (01) ==
LOC: LAB.DROPOF 12-12 14:52
PROVIDERS: PCP Family Medicine; Visit Provider Family Medicine
DX: R11.2 Nausea with vomiting, unspecified (principal); R10.9 Unspecified abdominal pain; R31.9 Hematuria, unspecified; R82.2 Biliuria; R14.0 Abdominal distension (gaseous)
CPT/HCPCS: 80053; 80061; 80076; 82150; 83036; 83690; 85025; 87086

== ENCOUNTER 2023-12-12 10:02 | Outpatient (CLI) | payer BC, SELFPAY ==
--- NOTE | 2023-12-12 10:05 | CT_ITS ---
PROCEDURE INFORMATION: Exam: CT Abdomen And Pelvis Without And With Contrast Exam date and time: 12/12/2023 10:12 AM Age: 58 years old Clinical indication: Bloating; Abdominal pain; Generalized; Additional info: Abdominal pain, bloating, blood in urine TECHNIQUE: Imaging protocol: Computed tomography of the abdomen and pelvis without and with contrast. Radiation optimization: All CT scans at this facility use at least one of these dose optimization techniques: automated exposure control; mA and/or kV adjustment per patient size (includes targeted exams where dose is matched to clinical indication); or iterative reconstruction. Contrast material: ISO 370; Contrast volume: 75 ml; Contrast route: INTRAVENOUS (IV); COMPARISON: CT ABDOMEN PELVIS W CON 03/26/2021 8:55 PM FINDINGS: Lungs: Calcified granulomas left lung base Diaphragm: Small hiatal hernia Liver: Decreased density throughout the liver compatible with hepatic steatosis. Gallbladder and biliary ducts: Gallbladder unremarkable Pancreas: Pancreas unremarkable Spleen: The spleen is unremarkable. Accessory splenule Adrenal glands: Adrenal glands unremarkable. Kidneys and ureters: No hydronephrosis. Stomach and bowel: Colonic diverticulosis. No evidence of diverticulitis. Appendix: No evidence of appendicitis. Intraperitoneal space: Unremarkable. No free air. No significant fluid collection. Vasculature: Unremarkable. No abdominal aortic aneurysm. Lymph nodes: Unremarkable. No enlarged lymph nodes. Urinary bladder: Unremarkable as visualized. Reproductive: Unremarkable as visualized. Bones/joints: Unremarkable. No acute fracture. Soft tissues: Fat filled umbilical hernia IMPRESSION: No evidence of acute abnormality.
[2023-12-12] MEDS: BARIUM SULFATE(READI-CAT2);450ML BOTTLE 450 ML PO (10:26)
[2023-12-12] MEDS: IOPAMIDOL-370 (76%);100ML BOTTLE 75 ML IV (10:26)
[2023-12-12] MEDS: SODIUM CHLORIDE 0.9% 10ML SYR (RAD ONLY) 10 ML IV (10:26)
== END 2023-12-12 23:59 | disposition home or self-care (01) ==
LOC: RAD 10:03
PROVIDERS: PCP Family Medicine; Visit Provider Family Medicine
DX: R10.9 Unspecified abdominal pain (principal); R82.2 Biliuria; R31.9 Hematuria, unspecified; R14.0 Abdominal distension (gaseous); R11.2 Nausea with vomiting, unspecified; R33.9 Retention of urine, unspecified; K52.9 Noninfective gastroenteritis and colitis, unspecified
CPT/HCPCS: 74178; Q9967

== ENCOUNTER 2024-03-30 16:12 | Outpatient (CLI) | payer BC, SELFPAY ==
--- NOTE | 2024-03-30 16:15 | MM_ITS ---
PROCEDURE INFORMATION: Exam: MG Bilateral Screening 3D Mammography Exam date and time: 03/30/2024 4:17 PM Age: 59 years old Clinical indication: Screening exam. TECHNIQUE: Imaging protocol: Bilateral Screening tomosynthesis and 2D mammography including computer-aided detection (CAD) when performed. COMPARISON: 1. MG MM DIG SCREENING MAMM BI W/CAD 03/02/2023 3:41 PM 2. MG MM DIG SCREENING MAMM BI W/CAD 02/24/2022 4:37 PM FINDINGS: MAMMOGRAPHY: Breast composition: There are scattered areas of fibroglandular density. Mass: No suspicious masses. Architectural distortion: None. Calcifications: No suspicious calcifications. Asymmetric density: None. Skin thickening: None. Axillary adenopathy: None. IMPRESSION: No mammographic evidence of malignancy. Annual screening is recommended unless otherwise clinically indicated. ASSESSMENT: BI-RADS Category 1: Negative.
== END 2024-03-30 23:59 | disposition home or self-care (01) ==
LOC: RAD 16:13
PROVIDERS: PCP Family Medicine; Visit Provider Family Medicine
DX: Z12.31 Encounter for screening mammogram for malignant neoplasm of breast (principal)
CPT/HCPCS: 77063; 77067

== ENCOUNTER 2024-10-08 10:20 | Day surgery (SDC) | payer BC, SELFPAY ==
--- NOTE | 2024-10-05 09:59 | SUR.PREOP ---
left message on pt's voicemail regarding NPO guidelines, arrival time, AM meds can be taken with small sip of water, and pt needs a ride that stays for the duration of the procedure and who is able to take them home. callback information given if pt has any questions.
[2024-10-08] VITALS (7 sets, daily range): BP systolic 92–134; BP diastolic 53–86; PULSE 57–77; RESP 16–18; TEMP 36.1–36.3; O2SAT 95–99; BMI 29.0
[2024-10-08] MEDS: LACTATED RINGERS 1000ML 1,000 ML 50 ML IV (10:59)
--- NOTE | 2024-10-08 12:00 | P.HP_ITS ---
History of Present Illness *Admission Date: 10/08/24 *History of present illness: Mrs. Colón is a 59-year-old female who is here for diagnostic EGD and screening colonoscopy. The patient has had some globus sensation with loud epiglottic noise periodically. She has seen ENT with signs of reflux. She is on Prilosec twice daily. Her last colonoscopy was 10 years ago. The examination is deemed medically necessary for diagnostic EGD and screening colonoscopy. The patient has been seen, interviewed and examined prior to the procedure by both myself and the anesthesia provider. [facility] Disclaimer: The information contained in this section may have been updated after the patient was seen, as this information can be updated by other users. Medical History (Updated 10/08/24 @ 12:01 by Jose Treviño II, MD) Chest tightness Laryngitis Sinus pain Sinus pressure Cough URI (upper respiratory infection) Fever blister Perforated appendicitis Acute appendicitis Viral syndrome SIRS (systemic inflammatory response syndrome) Aspiration pneumonia Laryngeal spasm Vasovagal syncope Exposure to COVID-19 virus Shingles Hyperlipemia, mixed Depression Fatigue Hair loss Surgical History History of colonoscopy History of appendectomy Family History Other Family history of cancer Family history of diabetes mellitus type II Family history of myocardial infarction Social History Smoking Status: Former smoker alcohol intake: never substance use type: denies use current occupational status: employed Travel in the last 8 weeks?: None household members: spouse housing: house 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 Have you lived/traveled outside [place] in past 30 days?: No Contact w/someone who lives/traveled outside US past 30 days?: No Exposure to someone with infectious disease in past 14 days?: No Do you have a fever (greater than 100.4 F or 38 C)?: No Have you tested positive for COVID-19?: No Exposed to someone with COVID-19 in past 14 days?: No Do you have a sore throat?: No Do you have a cough?: No Do you have any weakness?: No Do you have any diarrhea?: No Are you experiencing any unusual bleeding?: No Do you have any muscle aches/pain?: No Do you have any abdominal pain?: No Are you experiencing loss of taste or smell?: No Other Medical History Have you received the Flu Vaccine for this season: No Have you received the Pneumonia Vaccine: Yes Review of Systems Review of Systems Review of systems (narrative): Negative *Cardiovascular Comments: Negative *Gastrointestinal Comments: Negative *Genitourinary Comments: Negative *Musculoskeletal Comments: Negative *Neurologic Comments: Negative Meds Home Medications and Allergies Home Medications ?Medication ?Instructions ?Recorded ?Confirmed ?Type albuterol sulfate 90 mcg/actuation See Rx Instructions .Route 11/14/23 10/08/24 Rx aerosol inhaler .COMPLEX #8.5 grams fexofenadine 180 mg tablet 180 mg PO Q24H PRN allergie s 01/11/24 10/08/24 History (Zofia Allergy) atorvastatin 40 mg tablet See Rx Instructions .Route 0 04/23/24 10/08/24 Rx .COMPLEX #90 tabs hydroxyzine HCl 25 mg tablet See Rx Instructions .Rout e 05/28/24 10/08/24 Rx .COMPLEX #90 tabs sertraline 100 mg tablet See Rx Instructions .Route 0 06/20/24 10/08/24 Rx .COMPLEX #90 tabs omeprazole 20 mg capsule,delayed See Rx Instructions . Route 07/18/24 10/08/24 Rx release .COMPLEX #180 caps New Prescriptions to Start Prescriptions: Allergies Allergy/AdvReac Type Severity Reaction Status Date / Time sulfamethoxazole (From Allergy Intermediate Rash Verified 10/08/24 10:50 Bactrim) trimethoprim (From Bactrim) Allergy Intermediate Rash Verified 10/08/24 10:50 Exam Data for Last 24 hours Vital signs and Labs for Last 24 Hours: Temp Pulse Resp BP Pulse Ox O2 Del Method 97.4 F L 77 16 134/86 95 Room Air 10/08/24 10:53 10/08/24 10:53 10/08/24 10:53 10/08/24 10:53 10/08/24 10:53 10/08/24 10:53 I & O for Last 24 hours: Intake & Output 10/05/24 10/06/24 10/07/24 10/08/24 23:59 23:59 23:59 23:59 Weight 169 lb *Routine HEENT Exam Head: Present normocephalic Eye: Present EOMI and PERRL ENT: Present mucous membranes moist *Routine Neck Exam Neck: Present supple *Routine Respiratory Exam Respiratory: Present CTA bilaterally *Routine Cardiovascular Exam Cardiovascular: Present RRR *Routine Abdominal Exam Abdominal: Present soft and normoactive bowel sounds; Absent tenderness *Routine Rectal Exam Rectal:: deferred *Routine Genitalia Exam Genitalia:: deferred *Routine Extremities Exam Extremities: Absent cyanosis, clubbing or edema *Routine Skin Exam Skin: Present warm; Absent rash *Routine Neurological Exam Neurological: Present alert and oriented X3 Assessment and Plan *Assessment and plan (1) Dysphagia: Status: Acute Category: Medical Code(s): R13.10 - Dysphagia, unspecified (2) Globus sensation: Status: Acute Category: Medical Code(s): R09.A2 - Foreign body sensation, throat (3) Choking: Status: Acute Category: Medical Code(s): T17.308A - Unspecified foreign body in larynx causing other injury, initial encounter (4) Screening for colon cancer: Status: Acute Category: Medical Code(s): Z12.11 - Encounter for screening for malignant neoplasm of colon Plan A/P: 1. Dysphagia/globus sensation/GERD for upper endoscopy and screening for c olonoscopy is the preprocedural diagnosis. The patient will be anesthetized/sedated using MAC sedation. The patient has been seen and examined. Cardiac and lung assessment prior to the examination is stable. Proceed with planned diagnostic EGD and screening colonoscopy.
--- NOTE | 2024-10-08 12:12 | HMH.PROCNOTE ---
[facility] Procedure Note Date: 10/08/24 Time: 12:23 Procedure Note:: Upper Endoscopy Procedure Report: Esophagogastroduodenoscopy with cold biopsies, APC ablation and TTS balloon dilation Endoscopost: Jose Treviño II, MD Referring Physician: YURY Larkin Date of Procedure: October 08, 2024 Equipment: Olympus [id number] standard upper endoscope Sedation: MAC sedation Indications: Mrs. Colón is a 59-year-old female with globus sensation. She would awaken at nighttime and felt as if her throat was closing off. She did go to the ED and was sent to ENT. She had laryngoscopy but showed signs of reflux. She was placed on Prilosec twice daily. Her symptoms are much improved. She is having a lot less wheezing at nighttime. She has never had heartburn or reflux. She was hospitalized a couple of years ago with aspiration pneumonia that was felt to be related to the reflux. She does get some intermittent dysphagia. She reports no belching or bloating. She has no abdominal pain. She does state that her bowel function is regular. She has never had an EGD. She did have perforated appendicitis in 2021 with appendectomy. Procedure: Prior to the procedure, a history and physical exam was performed, and patient's medications and allergies were reviewed. The risks, benefits and alternatives of the sedation and procedure were discussed with the patient. All questions were answered and informed consent was obtained. The patient was brought to the procedure room. Patient identification and proposed procedure were verified by the physician and the nurse. The patient was placed in a left lateral decubitus position and the scope was passed under direct vision. Throughout the procedure, the patient's blood pressure, pulse, and oxygen saturations were monitored continuously. The upper GI endoscopy was accomplished without difficulty. The patient tolerated the procedure well. Findings: The scope was passed directly into the upper esophagus and advanced to the third portion of the duodenum. A cold biopsy was taken from the second portion of the duodenum for the disaccharidase assay. The post bulbar duodenum, ampulla and duodenal bulb were normal with normal mucosa and conniventes. The scope was withdrawn through a normal duodenal bulb and pylorus into the stomach. There was some mild linear reactive gastropathy of the antrum. Cold biopsies were obtained. The body and fundus of the stomach were normal. Upon retroflexion there was a 2 cm hiatal hernia. The scope was then withdrawn into the esophagus. There was no evidence of reflux esophagitis or Pratt's. There was a single tongue of salmon-colored mucosa that was biopsied to rule out intestinal metaplasia. There were no rings, strictures, corrugation or webs. There were stronger tertiary contractions and evidence of moderate esophageal dysmotility. There was a larger proximal esophageal inlet patch (half the circumference of proximal esophagus near cricopharyngeus). The inlet patch was ablated/coagulated using APC ablation. The entire esophagus was dilated to 60 Maltese/20 mm with a TTS hydrostatic balloon. There was some resistance at the cricopharyngeus. The remainder of the esophageal mucosa was normal. Impression: 1. Proximal esophageal inlet patch (14 to 15 mm) status post APC ablation/coagulation 2. Cricopharyngeal spasm 3. Nonerosive GERD with moderate esophageal dysmotility and small 2 cm hiatal hernia 4. Mild linear reactive gastropathy of antrum Plan: I will follow-up the biopsies and disaccharidase assay and discuss the findings with the patient and family. I will proceed with screening colonoscopy.
--- NOTE | 2024-10-08 12:26 | HMH.PROCNOTE ---
[facility] Procedure Note Date: 10/08/24 Time: 12:37 Procedure Note:: Colonoscopy Procedure Report: Colonoscopy with cold snare polypectomy Endoscopist: Jose Treviño II, MD Referring physician: YURY Larkin Date of Procedure: October 08, 2024 Equipment: Olympus [id number] adult colonoscope Sedation: MAC sedation Indication: Mrs. Colón is a 59-year-old female who is here for screening colonoscopy. Her last colonoscopy was 10 years ago and was normal. She reports no abdominal pain, weight loss, change in her bowel habits or rectal bleeding. She reports no family history of colon cancer. Procedure: Prior to the procedure, a history and physical exam was performed, and patient's medications and allergies were reviewed. The risks, benefits and alternatives of the sedation and procedure were discussed with the patient. All questions were answered and informed consent was obtained. The patient was brought to the procedure room. Patient identification and proposed procedure were verified by the physician and the nurse. The patient was placed in a left lateral decubitus position and the scope was passed under direct vision. Throughout the procedure, the patient's blood pressure, pulse, and oxygen saturations were monitored continuously. The colonoscopy was accomplished without difficulty. The patient tolerated the procedure well. Findings: On digital rectal examination there was normal rectal tone. There were no external hemorrhoids. The colonoscope was introduced through the anal canal to the rectum and advanced to the cecum. The ileocecal valve and appendiceal orifice were identified. The scope was advanced a short distance into the ileum which appeared grossly normal. The scope was then withdrawn into the colon. There was a single 5 mm polyp in the ascending colon removed via cold snare polypectomy. The remaining cecum, ascending and transverse colon and mucosa were grossly normal. There were scattered diverticuli throughout the descending and sigmoid colon (LEFT colon). The rectum itself was normal. Upon retroflexion within the rectum there were grade 1-2 internal hemorrhoids. The preparation was excellent throughout with Hilbert Preparation Score of 9. The cecal time was 12 minutes. Impression: 1. Ascending colon polyp (5 mm) 2. Left-sided diverticulosis 3. Grade 1-2 internal hemorrhoids Plan: I will follow-up the polyp histology and recommend repeat surveillance colonoscopy again in 7 years if the polyp is adenomatous. I would encourage psyllium bulking fiber supplementation on a long-term daily maintenance basis.
--- NOTE | 2024-10-08 12:31 | EXP.ANES.CKL ---
[facility] Disclaimer: The information contained in this section may have been updated after the patient was seen, as this information can be updated by other users. Medical History (Updated 10/08/24 @ 12:01 by Jose Treviño II, MD) Chest tightness Laryngitis Sinus pain Sinus pressure Cough URI (upper respiratory infection) Fever blister Perforated appendicitis Acute appendicitis Viral syndrome SIRS (systemic inflammatory response syndrome) Aspiration pneumonia Laryngeal spasm Vasovagal syncope Exposure to COVID-19 virus Shingles Hyperlipemia, mixed Depression Fatigue Hair loss Surgical History History of colonoscopy History of appendectomy Family History Other Family history of cancer Family history of diabetes mellitus type II Family history of myocardial infarction Social History Smoking Status: Former smoker alcohol intake: never substance use type: denies use current occupational status: employed Travel in the last 8 weeks?: None household members: spouse housing: house 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 Have you lived/traveled outside [place] in past 30 days?: No Contact w/someone who lives/traveled outside US past 30 days?: No Exposure to someone with infectious disease in past 14 days?: No Do you have a fever (greater than 100.4 F or 38 C)?: No Have you tested positive for COVID-19?: No Exposed to someone with COVID-19 in past 14 days?: No Do you have a sore throat?: No Do you have a cough?: No Do you have any weakness?: No Do you have any diarrhea?: No Are you experiencing any unusual bleeding?: No Do you have any muscle aches/pain?: No Do you have any abdominal pain?: No Are you experiencing loss of taste or smell?: No [facility] Anesthesia Checklist Patient Identification Patient Identification: Arm Band and Verbal (Name & ) Structural Data Admitted From: Home Planned Operative Procedure/s: colonoscopy Verified Documents: Surgical Consent NPO Status Verified Time NPO: 00:00 Additional verifications Anesthesia Reactions: No Airway Assessment Mallampati Score:: Class II C-Spine Mobility Assessed: Yes TMJ Mobility Assessed: Yes Dentition: Good Dentition Neurological Assessment Level of Consciousness: Awake, Alert and Appropriate Hx Seizures: No Numbness or tingling in extremities: No Anesthesia Plan Anesthesia Risk discussed: Yes Anesthesia Plan: Verified ASA Class: II Anesthesia Type: MAC
[2024-10-11 15:12] LABS: Interpretation Notes (.); Lactase 8.1 (>/= 14.0); Maltase 179.04 (>/= 110.0); Palatinase 11.51 (>/= 8.5); Reference Notes (.); Sucrase 40.07 (>/= 25.0)
== END 2024-10-08 13:42 | disposition home or self-care (01) ==
PROVIDERS: PCP Family Medicine; Visit Provider Internal Medicine Gastroenterology
PROC: 0DJ08ZZ Inspection of Upper Intestinal Tract, Via Natural or Artificial Opening Endoscopic (ICD-10-PCS; CPT 45378; principal; 2024-10-08 12:00)
DX: Z12.11 Encounter for screening for malignant neoplasm of colon (principal); D12.2 Benign neoplasm of ascending colon; E78.5 Hyperlipidemia, unspecified; K29.50 Unspecified chronic gastritis without bleeding; K57.30 Diverticulosis of large intestine without perforation or abscess without bleeding; K64.1 Second degree hemorrhoids; K21.9 Gastro-esophageal reflux disease without esophagitis; K44.9 Diaphragmatic hernia without obstruction or gangrene; K64.0 First degree hemorrhoids; K22.89 Other specified disease of esophagus; K22.4 Dyskinesia of esophagus; Z87.891 Personal history of nicotine dependence
CPT/HCPCS: 43239; 43249; 43250; 45385; 82657; C1726; C2618; J2003; J2704; J7120

== ENCOUNTER 2024-11-17 08:46 | Outpatient (CLI) | payer BC, SELFPAY ==
--- OUTSIDE RECORDS SUMMARY | 2024-11-17 08:49 | XMS_ITS | Clinical Summary ---
Author Organization [facility] Address [address] [place] [address] Care Team Providers Care Reject Opener And Filler Name Role Phone Judi Alvarez APRN Primary Care Provider + [phone] Allergies Active Allergy Reactions Criticality Noted Date Comments Sulfamethoxazole-Trimethoprim Hives 2021 Medications meloxicam (MOBIC) 7.5 MG tablet As Needed. 2 Active montelukast (SINGULAIR) 10 MG tablet Take 10 mg by mouth Every Evening. 2 Active omeprazole (priLOSEC) 20 MG capsule Take 20 mg by mouth 2 (Two) Times a Day. 2 Active sertraline (ZOLOFT) 100 MG tablet TAKE 1 AND 1/2 TABLET BY MOUTH EVERY DAY FOR depression 2 Active simvastatin (ZOCOR) 40 MG tablet Take 40 mg by mouth Every Evening. 2 Active VITAMIN D PO Take by mouth. Ac tive ALBUTEROL IN Inhale As Needed. Active Active Problems No known active problems Family History Medical History Relation Name Comments Breast cancer Sister hormone relate d Colon cancer Neg Hx Osteoporosis Neg Hx Ovarian cancer Neg Hx Uterine cancer Neg Hx Relation Name Status Comments Sister Social History Tobacco Use Types Packs/Day Years Used Date Smoking Tobacco: Former Smokeless Tobacco: Never Comments:smoke in her 20's b ut not since Alcohol Use Standard Drinks/Week Comments Yes 0 (1 standard drink = 0.6 oz pur e alcohol) Abuse Screen Answer Date Recorded Unsafe at Home or Work/School Not on file Feels Threatened by Someone? Not on file 10/2022 Does Anyone Keep You from Co ntacting Others or Doint Things Outside the Home? Not on file 11/22/2022 Physical Sign of Abuse Present Not on file 1 Housing Stability Answer Date Recorded Current Living Arrangements Not on file 10/2022 Potentially Unsafe Housing Conditions Not on julio cesar e 11/22/2022 Family and Community Support Answer [place] e Recorded Help with Day-to-Day Activities Not on file 11/22/2022 Lonely or Isolated Not on file 11/22/2022 Employment Answer Date Recorded Do you want help finding or keeping work or a hi b? Not on file 11/22/2022 Disabilities Answer Date Recorded Concentrating, Remembering, or Making Decisions Difficulty Not on file 11/22/2022 Doing Errands Independently Difficulty Not on fi le 11/22/2022 Education Answer Date Recorded Help with school or training? Not on file Preferred Language Not on file 11/22/2022 Comments No Sex and Gender Information Value Date Recorded Sex Assigned at Not on file Legal Sex Female 10:33 AM EDT Gender Identity Not on file Sexual Orientation Not on file Last Filed Vital Signs Vital Sign Reading Time Taken Comments Blood Pressure 156/84 05/21/2021 10:36 AM EDT Pulse - - Temperature - - Respiratory Rate - - Oxygen Saturation - - Inhaled Oxygen Concentration - - Weight 69.4 kg (153 lb) 05/21/2021 10:36 AM EDT Height 162.6 cm (5' 4 ) 05/21/2021 10:36 AM EDT Body Mass Index 26.26 05/21/2021 10:36 AM EDT Plan of Treatment Health Maintenance Due Date Last Done Comments Annual Gynecologic Pelvic and Breast Exam 1964 TDAP/TD VACCINES (1 - Tdap) 1983 MAMMOGRAM 2004 COLOGUARD 2009 COLON CANCER SCREENING 5 YEAR SIGMOIDOSCOPY 2009 COLONOSCOPY [address] SCREENING [address] COLONOGRAPHY 2009 FECAL OCCULT BLOOD TEST 2009 FIT Testing (1 year) 2009 Pneumococcal Vaccine 50+ (1 of 1 - PCV) 2014 ZOSTER VACCINE (1 of 2) 2014 ANNUAL PHYSICAL 05/21/2021 HEPATITIS C SCREENING 05/21/2021 INFLUENZA VACCINE 09/14/2024 Insurance [employer] Care Teams Reject Opener And Filler Relationship Specialty Start Date End Date Judi Alvarez APRN [address] [place] [address] PCP - General Family Medicine 05/21/21
[2024-11-17 09:17] LABS: Hematocrit 39.3 % (37.0-47.0); Hemoglobin 12.8 g/dL (12.2-16.2); Immature Granulocytes % 0.2 %; Mean Corpuscular HGB Conc 32.6 g/dL (31.8-35.4); Mean Corpuscular Hemoglobin 29.3 pg (27.0-31.2); Mean Corpuscular Volume 89.9 fl (81-99); Nucleated Red Blood Cells % 0 %; Platelet Count 242 K/mm3 (142-424); Red Blood Count 4.37 M/mm3 (4.20-5.40); Red Cell Distribution Width-SD 47.5 fL; White Blood Count 6.0 K/mm3 (4.8-10.8)
[2024-11-17 10:29] LABS: Alanine Aminotransferase 60 U/L (12-78); Albumin Level 4.0 g/dl (3.5-5.0); Albumin/Globulin Ratio 1.5 (1.1-1.8); Alkaline Phosphatase 101 U/L (38-126); Anion Gap 12.3 mEq/L (5-15); Aspartate Amino Transferase 52 U/L (14-36); Bilirubin,Total 0.5 mg/dl (0.2-1.3); Blood Urea Nitrogen 8 mg/dl (7-17); Calcium 9.1 mg/dl (8.4-10.2); Carbon Dioxide 25 mmol/L (22.0-30.0); Chloride 106 mmol/L (98-107); Cholesterol 180 mg/dl (140-200); Creatinine,Serum 0.60 mg/dl (0.52-1.04); Estimated Glomerular Filt Rate 102 ml/min (>60); GFR (African American) 123 ML/MIN (>60); Globulin 2.6 g/dL (1.3-3.2); Glucose 109 mg/dl (74-100); HDL Cholesterol 70 mg/dl (40-60); Potassium 4.3 mmoL/L (3.5-5.1); Sodium 139 mmol/L (136-145); Total Protein,Serum 6.6 g/dl (6.3-8.2); Triglycerides 97 mg/dl (30-150)
[2024-11-17 11:03] LABS: Thyroid Stimulating Hormone 2.15 uIU/mL (0.465-4.68)
[2024-11-17 13:13] LABS: Hemoglobin A1C 5.8 % (4.0-6.0)
== END 2024-11-17 23:59 | disposition home or self-care (01) ==
LOC: LAB 08:47
PROVIDERS: PCP Family Medicine; Visit Provider Family Medicine
DX: Z00.00 Encounter for general adult medical examination without abnormal findings (principal); K21.00 Gastro-esophageal reflux disease with esophagitis, without bleeding; F32.A Depression, unspecified; E11.9 Type 2 diabetes mellitus without complications; E78.2 Mixed hyperlipidemia; L65.9 Nonscarring hair loss, unspecified
CPT/HCPCS: 36415; 80053; 80061; 83036; 84443; 85025